=== PATIENT | male | born 1970 | race African-American/Black ===

== ENCOUNTER 2023-10-12 15:59 | Emergency (ER) | payer OTHER, SELFPAY ==
[2023-10-12 16:04] VITALS: BP 147/84; PULSE 76; RESP 14; TEMP 36.1; O2SAT 99; BMI 38.3
[2023-10-12 17:08] VITALS: PULSE 74; O2SAT 96
[2023-10-12 17:09] VITALS: BP 136/85; PULSE 75; O2SAT 95
[2023-10-12 17:15] LABS: Add Manual Diff / Slide Review NO; Basophils Absolute Auto 100 /uL (0-100); Basophils Percent Auto 1.6 % (0-2); Eosinophils Absolute Auto 400 /uL (0-450); Eosinophils Percent Auto 5.1 % (2-4); Hematocrit 43.6 % (41-53); Hemoglobin 14.5 g/dL (13.5-17.5); Lymphocytes Absolute Auto 2400 /uL (1100-4500); Lymphocytes Percent Auto 30.6 % (25-40); Mean Corpuscular HGB Conc 33.2 % (30-36); Mean Corpuscular Volume 81.4 fL (80-100); Monocytes Absolute Auto 800 /uL (0-900); Monocytes Percent Auto 9.7 % (3-14); Neutrophils Absolute Auto 4100 /uL (1500-7000); Platelet Count 411 X10^3/uL (150-400); Red Blood Cell Count 5.36 X10^6/uL (4.5-5.9); White Blood Cell Count 7.7 X10^3/uL (4.5-11.0)
[2023-10-12 17:30] VITALS: BP 126/79; PULSE 68; O2SAT 95
--- NOTE | 2023-10-12 17:33 | ED_ITS ---
HPI - GI Bleed General Chief complaint: GI Bleed Stated complaint: blood in stool Time Seen by Provider: 10/12/23 16:05 Source: patient Mode of arrival: Ambulatory History of Present Illness HPI Narrative: 53-year-old male with no reported past medical history presents by private vehicle from home for 2 episodes of bright red blood on toilet tissue. Reports 1-2 drops of red blood on toilet tissue after a bowel movement. Denies abdominal pain. States that his last colonoscopy was 07/2022, a small polyp was removed, and patient was told to return for repeat colonoscopy in 3 years. Related Data Allergies Allergy/AdvReac Type Severity Reaction Status Date / Time aspirin Allergy Unknown Verified 10/12/23 16:08 Review of Systems Review of Systems Narrative: Negative except as noted above Patient History Social History Smoking Status: Never smoker Smoking Status: Never smoker alcohol intake frequency: 0-2 drinks per day Substance Use Type: does not use Exam Initial Vital Signs Initial Vital Signs: Vital Signs Temperature 97.0 F L 10/12/23 16:04 Pulse Rate 76 10/12/23 16:04 Respiratory Rate 14 10/12/23 16:04 Blood Pressure 147/84 H 10/12/23 16:04 Pulse Oximetry 99 10/12/23 16:04 Oxygen Delivery Method Room Air 10/12/23 16:04 Const: Awake, alert, no acute distress, nontoxic appearing Cardiac: regular rate, regular rhythm RESP: unlabored, clear bilaterally, no wheezing GI: Atraumatic, soft, nontender, nondistended, no rebound, no guarding Rectal: Senior Administrative Assistant present, no fissures, no thrombosed hemorrhoids, no gross blood MSK: Atraumatic, full range of motion, pulses equal Skin: Warm, Dry, intact, no rashes Neuro: AO x3, CN II-XII grossly intact, moves all extremities Course Orders Ordered: ED Orders 10/12/23 17:04 CBC Auto Diff [Complete Blood Count AUTO DIFF] Stat CMP [Comprehensive Metabolic Panel] Stat Vital Signs Vital signs: Vital Signs - 8 hr 10/12/23 16:04 Temperature 97.0 F L Pulse Rate 76 Respiratory Rate 14 Blood Pressure 147/84 H Pulse Oximetry 99 Oxygen Delivery Method Room Air MDM - GI Bleed Differential Diagnosis Differential diagnosis: Likely hemorrhoids, gastritis and Upper gastrointestinal hemorrhage Lab Data 10/12/23 17:04 10/12/23 17:04 Labs: Lab Results 10/12/23 Range/Units 17:04 WBC 7.7 (4.5-11.0) X10^3/uL RBC 5.36 (4.5-5.9) X10^6/uL Hgb 14.5 (13.5-17.5) g/dL Hct 43.6 (41-53) % MCV 81.4 (80-100) fL MCH 27.0 (26-34) PG MCHC 33.2 (30-36) % RDW 13.0 (11.6-14.8) % Plt Count 411 H (150-400) X10^3/uL Neut % (Auto) 53.0 (50-75) % Lymph % (Auto) 30.6 (25-40) % [place] % (Auto) 9.7 (3-14) % Eos % (Auto) 5.1 H (2-4) % Baso % (Auto) 1.6 (0-2) % Neut # (Auto) 4100 (5671-2135) /uL Lymph # (Auto) 2400 (1984-2044) /uL [place] # (Auto) 800 (0-900) /uL Eos # (Auto) 400 (0-450) /uL Baso # (Auto) 100 (0-100) /uL Sodium 142 (137-145) mmol/L Potassium 4.0 (3.4-5.1) mmol/L Chloride 106 (98-107) mmol/L Carbon Dioxide 26 (22-32) mmol/L BUN 12 (9-20) mg/dL Creatinine 1.19 (0.66-1.25) mg/dL Estimated GFR > 60 (>60) mL/min BUN/Creatinine Ratio 10.1 (6-22) Glucose 121 H (70-100) mg/dL Calcium 9.7 (8.4-10.2) mg/dL Total Bilirubin 0.6 (0.2-1.3) mg/dL AST 29 (17-59) IU/L ALT 28 (<50) IU/L Alkaline Phosphatase 200 H (38-126) U/L Total Protein 8.9 H (6.3-8.2) g/dL Albumin 4.6 (3.5-5.0) g/dL Globulin 4.3 H (1.7-4.1) g/dL Albumin/Globulin Ratio 1.1 (1.0-2.8) MDM Narrative Medical decision making narrative: .Well-appearing patient with several drops of bright red blood when he wipes after using the restroom. No abnormal rectal exam, abdomen soft, nontender. Colonoscopy less than 2 years ago. Laboratory work is unremarkable, hemoglobin greater than 14. With normal abdominal exam, normal rectal exam, normal labs no indication for CT imaging at this time. Patient was counseled to follow up with his wood heel attacher about the possibility of repeat colonoscopy at a sooner date, in the interim he was counseled to take daily stool softeners, drink plenty of fluids, and avoid prolonged sitting on the toilet. ED return precautions discussed at bedside. Patient expressed understanding of the plan and is in agreement at this time. All questions answered at the time of discharge. Discharge Plan Departure Patient Disposition: Home Clinical Impression: Bleeding per rectum Instructions: Gastrointestinal Bleeding Activity Restrictions/Additional Instructions: CALL YOUR VICE PRESIDENT OF MANUFACTURING FOR A FOLLOW UP APPOINTMENT. MAKE SURE TO EAT PLENTY OF FIBER AND DRINK PLENTY OF FLUIDS. YOUR HEMOGLOBIN TODAY WAS 14.5. Referrals: [facility] [Primary Care Provider] - Stand Alone Forms: Patient Portal/API
[2023-10-12 17:44] LABS: Alanine Aminotransferase 28 IU/L (<50); Albumin 4.6 g/dL (3.5-5.0); Albumin Globulin Ratio 1.1 (1.0-2.8); Alkaline Phosphatase 200 U/L (38-126); Aspartate Aminotransferase 29 IU/L (17-59); BUN Creatinine Ratio 10.1 (6-22); Bilirubin Total 0.6 mg/dL (0.2-1.3); Blood Urea Nitrogen 12 mg/dL (9-20); Calcium 9.7 mg/dL (8.4-10.2); Carbon Dioxide 26 mmol/L (22-32); Chloride 106 mmol/L (98-107); Estimated Glomerular Filt Rate > 60 mL/min (>60); Globulin 4.3 g/dL (1.7-4.1); Glucose 121 mg/dL (70-100); HEMOLYSIS 32 (0-50); Sodium 142 mmol/L (137-145); Total Protein 8.9 g/dL (6.3-8.2)
[2023-10-12 18:00] VITALS: PULSE 66; O2SAT 96
== END 2023-10-12 18:17 | disposition home or self-care (01) ==
PROVIDERS: Emergency Provider Emergency Medicine
DX: K62.5 Hemorrhage of anus and rectum (principal)
CPT/HCPCS: 36415; 80053; 85025; 99283

== ENCOUNTER 2024-11-04 20:48 | Inpatient (IN) | payer OTHER, SELFPAY ==
[2024-11-04] VITALS (27 sets, daily range): BP systolic 98–165; BP diastolic 55–93; PULSE 125–165; RESP 7–28; TEMP 36.8; O2SAT 94–100; BMI 39.0
--- NOTE | 2024-11-04 20:54 | EKG_ITS ---
[facility] [address] [place] [address] Test Date: 2024-11-04 Pat Name: Solomon Pritchard Department: [facility] Room: Gender: Male Product Advisor: DAVE : 1970 Requested By: Order Number: [id number] Reading MD: Delano Thorpe MD Measurements Intervals [place] Rate: 148 P: NE: QRS: -29 QRSD: 78 T: 265 QT: 292 QTc: 458 Interpretive Statements Critical Test Result: High HR Atrial fibrillation with rapid ventricular response with premature ventricular or aberrantly conducted complexes Low voltage QRS Inferior infarct , age undetermined NO PRIOR TRACING Electronically Signed On 11-05-2024 7:35:08 PST by Delano Thorpe MD
--- NOTE | 2024-11-04 21:04 | DI.RAD.S_ITS ---
PROCEDURE: XR CHEST 1V INDICATIONS: chest pain TECHNIQUE: One view of the chest was acquired. COMPARISON: None. FINDINGS: Surgical changes and devices: None. Lungs and pleura: Low lung volumes. No dense airspace disease or pleural effusions. Mediastinum: Normal heart size Bones and chest wall: Unremarkable IMPRESSION: No acute radiographic abnormality on this single view study. Low lung volumes. Dictated by: Talib Valderrama M.D. on 11/04/2024 at 21:45 Approved by: Talib Valderrama M.D. on 11/04/2024 at 21:45
--- NOTE | 2024-11-04 21:14 | ED.CHESTPAIN ---
HPI - Chest Pain General Chief Complaint: Chest Pain Stated Complaint: afib Time Seen by Provider: 11/04/24 21:04 Source: patient Mode of arrival: Ambulatory Limitations: no limitations History of Present Illness HPI narrative: Patient is a 54-year-old male history of hypertension presenting today with irregular heartbeat. He reports he has been off and on for the last 2 weeks his watch has been notifying him of that. He does have some shortness of breath admits to some discomfort in his chest. No actual pain. He denies any recent travel no prior history of any cardiac issue. Denies any lower extremity swelling Related Data Allergies Allergy/AdvReac Type Severity Reaction Status Date / Time aspirin Allergy Unknown Verified 10/12/23 16:08 Patient History Social History Smoking Status: Never smoker Smoking Status: Never smoker alcohol intake frequency: 0-2 drinks per day Exam Initial Vital Signs Initial Vital Signs: Vital Signs Temperature 98.3 F 11/04/24 20:58 Pulse Rate 165 H 11/04/24 20:58 Respiratory Rate 10 L 11/04/24 20:58 Blood Pressure 165/93 H 11/04/24 20:58 Pulse Oximetry 100 11/04/24 20:58 Oxygen Delivery Method Room Air 11/04/24 20:58 GENERAL: Alert pleasant 54-year-old male and in no acute distress. HEENT: Head atraumatic,EOMI, pupils reactive, face symmetric, moist mucous membranes CARDIOVASCULAR: Irregularly irregular tachycardic RESPIRATORY: Breath sounds equal bilaterally, no wheezes rales or rhonchi. ABDOMEN: Soft, nontender. Normoactive bowel sounds all 4 quadrants. No guarding or rebound. EXTREMITIES: Normal range of motion, no clubbing or edema. Neurovascularly intact NEUROLOGICAL: Alert and oriented x4.Normal gait and speech. Cranial nerves II through XII grossly intact. SKIN: Warm, dry, no laceration, no petechiae, no rashes or lesions. Course Orders Ordered: ED Orders 11/04/24 20:54 EKG-12 Lead Stat 11/04/24 21:04 XR chest 1V Stat EKG-12 Lead Stat 11/04/24 21:06 BNP [NT-proBNP (BNP-Adult 18+)] Stat Complete Blood Count AUTO DIFF Stat Comprehensive Metabolic Panel Stat D Dimer Stat Lipase Stat MAG [Magnesium] Stat PTT Partial Thromboplastin Shyam Stat Prothrombin Time INR Stat TSH [Thyroid Stimulating Hormone] Stat Troponin & CK Cardiac Panel Stat 11/04/24 23:34 CT angio chest PE protocol Stat 11/05/24 EC echo doppler complete Routine Diltiazem HCl 125 mg/ Sodium (Chloride) 125 mls @ 5 mls/hr IV TITRATE JOYCE; Protocol Last Titration: 11/04/24 23:34 Dose: 15 mg/hr, 15 mls/hr Documented By: Titration: 11/04/24 23:14 Dose: 10 mg/hr, 10 mls/hr Documented By: Admin: 11/04/24 22:41 Dose: 5 mg/hr, 5 mls/hr Documented By: MR Discontinued Medications Apixaban (Apixaban 5 Mg Tablet) 5 mg PO NOW ONE Stop: 11/04/24 22:32 Last Admin: 11/04/24 22:38 Dose: 5 mg Documented By: MR Diltiazem HCl (Diltiazem 25 Mg/5 Ml Sdv) 10 mg IV NOW ONE Stop: 11/04/24 21:05 Last Admin: 11/04/24 21:27 Dose: 10 mg Documented By: MR Diltiazem HCl (Diltiazem 25 Mg/5 Ml Sdv) 10 mg IV NOW ONE Stop: 11/04/24 21:48 Last Admin: 11/04/24 21:52 Dose: 10 mg Documented By: Vital Signs Vital signs: Vital Signs - 8 hr 11/04/24 20:58 11/04/24 21:07 11/04/24 21:08 Temperature 98.3 F Pulse Rate 165 H 153 H Respiratory Rate 10 L Blood Pressure 165/93 H 132/83 Pulse Oximetry 100 98 Oxygen Delivery Method Room Air 11/04/24 21:08 11/04/24 21:27 11/04/24 21:30 Temperature Pulse Rate 158 H 163 H Respiratory Rate 12 Blood Pressure 132/83 120/84 Pulse Oximetry 98 Oxygen Delivery Method 11/04/24 21:30 11/04/24 21:52 11/04/24 22:00 Temperature Pulse Rate 158 H 127 H 129 H Respiratory Rate 17 14 Blood Pressure 120/84 Pulse Oximetry 96 95 Oxygen Delivery Method 11/04/24 22:00 11/04/24 22:30 11/04/24 22:30 Temperature Pulse Rate 139 H Respiratory Rate 9 L Blood Pressure 122/82 117/74 Pulse Oximetry 96 Oxygen Delivery Method 11/04/24 22:41 11/04/24 22:55 11/04/24 22:55 Temperature Pulse Rate 141 H 142 H Respiratory Rate 11 L Blood Pressure 117/74 106/82 Pulse Oximetry 96 Oxygen Delivery Method 11/04/24 22:56 11/04/24 22:56 11/04/24 22:57 Temperature Pulse Rate 139 H Respiratory Rate 15 Blood Pressure 117/84 109/72 Pulse Oximetry 95 Oxygen Delivery Method 11/04/24 22:57 11/04/24 22:58 11/04/24 22:58 Temperature Pulse Rate 142 H 127 H Respiratory Rate 13 13 Blood Pressure 126/67 Pulse Oximetry 96 96 Oxygen Delivery Method 11/04/24 22:59 11/04/24 22:59 11/04/24 23:00 Temperature Pulse Rate 136 H Respiratory Rate 7 L Blood Pressure 123/78 125/64 Pulse Oximetry 96 Oxygen Delivery Method 11/04/24 23:00 11/04/24 23:05 11/04/24 23:05 Temperature Pulse Rate 141 H 129 H Respiratory Rate 13 13 Blood Pressure 122/72 Pulse Oximetry 96 95 Oxygen Delivery Method 11/04/24 23:10 11/04/24 23:10 11/04/24 23:15 Temperature Pulse Rate 138 H Respiratory Rate 10 L Blood Pressure 123/67 120/79 Pulse Oximetry 95 Oxygen Delivery Method 11/04/24 23:15 11/04/24 23:20 11/04/24 23:20 Temperature Pulse Rate 138 H 142 H Respiratory Rate 15 15 Blood Pressure 135/63 Pulse Oximetry 96 95 Oxygen Delivery Method 11/04/24 23:25 11/04/24 23:25 11/04/24 23:30 Temperature Pulse Rate 142 H 141 H Respiratory Rate 13 12 Blood Pressure 120/66 Pulse Oximetry 94 95 Oxygen Delivery Method 11/04/24 23:30 11/04/24 23:33 11/04/24 23:35 Temperature Pulse Rate 136 H Respiratory Rate 13 Blood Pressure 126/71 98/55 L Pulse Oximetry 96 Oxygen Delivery Method 11/04/24 23:35 11/04/24 23:40 11/04/24 23:41 Temperature Pulse Rate 125 H 158 H 153 H Respiratory Rate 13 28 H 22 Blood Pressure Pulse Oximetry 94 94 95 Oxygen Delivery Method 11/04/24 23:41 11/04/24 23:45 11/04/24 23:45 Temperature Pulse Rate 147 H Respiratory Rate 14 Blood Pressure 123/78 118/69 Pulse Oximetry 95 Oxygen Delivery Method 11/04/24 23:50 11/04/24 23:50 11/05/24 00:02 Temperature Pulse Rate 144 H 93 H Respiratory Rate 13 28 H Blood Pressure 104/74 Pulse Oximetry 95 96 Oxygen Delivery Method 11/05/24 00:05 11/05/24 00:10 11/05/24 00:15 Temperature Pulse Rate 137 H 135 H 138 H Respiratory Rate 8 L 9 L 23 Blood Pressure Pulse Oximetry 97 94 96 Oxygen Delivery Method 11/05/24 00:20 11/05/24 00:25 11/05/24 00:30 Temperature Pulse Rate 132 H 138 H 131 H Respiratory Rate 13 12 11 L Blood Pressure Pulse Oximetry 95 95 95 Oxygen Delivery Method 11/05/24 00:35 11/05/24 00:40 Temperature Pulse Rate 139 H 140 H Respiratory Rate 19 11 L Blood Pressure Pulse Oximetry 94 95 Oxygen Delivery Method MDM - Chest Pain Lab Data 11/04/24 21:06 11/04/24 21:06 Labs: Lab Results 11/04/24 Range/Units 21:06 WBC 7.7 (4.5-11.0) X10^3/uL RBC 4.84 (4.5-5.9) X10^6/uL Hgb 13.6 (13.5-17.5) g/dL Hct 41.0 (41-53) % MCV 84.6 (80-100) fL MCH 28.1 (26-34) PG MCHC 33.2 (30-36) % RDW 13.1 (11.6-14.8) % Plt Count 428 H (150-400) X10^3/uL Neut % (Auto) 44.7 L (50-75) % Lymph % (Auto) 40.1 H (25-40) % [place] % (Auto) 9.6 (3-14) % Eos % (Auto) 4.8 H (2-4) % Baso % (Auto) 0.8 (0-2) % Neut # (Auto) 3400 (5073-2771) /uL Lymph # (Auto) 3100 (8844-1041) /uL [place] # (Auto) 700 (0-900) /uL Eos # (Auto) 400 (0-450) /uL Baso # (Auto) 100 (0-100) /uL PT 11.4 (9.4-12.5) SECONDS INR 1.0 (0.9-1.3) APTT 37 H (25.1-36.5) SECONDS D-Dimer 885 H (<500) ng/ml Sodium 142 (137-145) mmol/L Potassium 3.7 (3.4-5.1) mmol/L Chloride 110 H (98-107) mmol/L Carbon Dioxide 25 (22-32) mmol/L BUN 15 (9-20) mg/dL Creatinine 1.60 H (0.66-1.25) mg/dL Estimated GFR 51 L (>60) mL/min BUN/Creatinine Ratio 9.4 (6-22) Glucose 109 H (70-100) mg/dL Calcium 9.0 (8.4-10.2) mg/dL Magnesium 1.9 (1.6-2.3) mg/dL Total Bilirubin 0.5 (0.2-1.3) mg/dL AST 31 (17-59) IU/L ALT 33 (<50) IU/L Alkaline Phosphatase 169 H (38-126) U/L Total Creatine Kinase 139 (55-170) U/L Troponin I < 0.012 (0.01-0.034) ng/mL NT-Pro-B Natriuret Pep 914 H (<125) pg/mL Total Protein 7.8 (6.3-8.2) g/dL Albumin 4.2 (3.5-5.0) g/dL Globulin 3.6 (1.7-4.1) g/dL Albumin/Globulin Ratio 1.2 (1.0-2.8) Lipase 110 (23-300) U/L TSH 3.23 (0.47-4.68) uIU/mL Point of Care Testing Glucose POC 109 Imaging Data Chest x-ray: Radiologist's Impression: PROCEDURE: XR CHEST 1V INDICATIONS: chest pain TECHNIQUE: One view of the chest was acquired. COMPARISON: None. FINDINGS: Surgical changes and devices: None. Lungs and pleura: Low lung volumes. No dense airspace disease or pleural effusions. Mediastinum: Normal heart size Bones and chest wall: Unremarkable IMPRESSION: No acute radiographic abnormality on this single view study. Low lung volumes. Dictated by: Talib Valderrama M.D. on 11/04/2024 at 21:45 CT scan - chest: Radiologist's Impression: PROCEDURE: CT ANGIO CHEST PE PROTOCOL INDICATIONS: new onset afib r/o pe TECHNIQUE: After the administration of intravenous contrast, 2 mm thick sections acquired from the pulmonary apices to the posterior costophrenic angles. 3-dimensional maximum intensity projection (MIP) coronal and sagittal reformats were then acquired through the thorax. For radiation dose reduction, the following was used: automated exposure control, adjustment of mA and/or kV according to patient size. COMPARISON: [facility], , XR CHEST 1V, 11/04/2024, 21:14. FINDINGS: Image quality: Diagnostic Lungs and pleura: Mild lower lung centrilobular nodules. Scattered bronchial wall thickening. No pleural effusions. Other nodules are present for example in the right upper lung measuring 5 mm (5/99) attention Attention on follow-up. Mediastinum, heart, and esophagus: Mild cardiomegaly. No acute pulmonary embolism. Mildly patulous esophagus. No enlarged lymph nodes by size criteria. Mildly ectatic ascending aorta at 4.1 cm. Chest wall and thyroid: Unremarkable Upper abdomen: No gross abnormality on these arterial phase images. Bones: No aggressive appearing osseous abnormality. IMPRESSION: No pulmonary embolus. Centrilobular pulmonary nodules mostly in the lower lungs, likely infectious/inflammatory. Consider future imaging surveillance to assess for resolution. Cardiomegaly. Other findings above. Dictated by: Talib Valderrama M.D. on 11/05/2024 at 0:12 ECG Data Attestation: I personally reviewed and interpreted this ECG as follows: Prior ECG tracings: available for review Interpretation: Atrial fibrillation rate 148 no acute ischemic changes MDM Narrative Medical decision making narrative: MDM CC: Atrial fibrillation Complicating co-morbidities: Hypertension Medical records reviewed: Per ED visit 10/12/2023 for rectal bleeding Differential considered: Atrial fibrillation atrial flutter WPW,, anemia pneumonia, pulmonary embolism Exam documented above, pertinent findings include: Pleasant nontoxic 54-year-old male irregularly irregular tachycardic Lab Test results independently reviewed as above. Pertinent findings: No leukocytosis or anemia hemoglobin 13.6 hematocrit 41.0 Sodium 142 potassium 3.7 chloride 110 carbon dioxide 25 BUN 15 creatinine 1.6 glucose 109 Bilirubin 0.5 AST 31 ALT 33 Troponin negative BNP 914 D-dimer 885 Independently reviewed EKG as above atrial fibrillation with RVR without ischemia Imaging studies independently reviewed: Consultations: Dr. Ames, hospitalist updated patient's symptoms test results request CT for rule out PE before accepting. Aware of heart rate may need to add beta-vic as well Treatments: Diltiazem 20 mg, Diltiazem drip Re-evaluations: Patient's heart rate did slow initially with diltiazem, however it does seem to be fluctuating quite a bit he was taken off for the CT scan as well but does not seem adequately controlled on diltiazem Discussion: Patient 54-year-old male history of hypertension presenting today with atrial fibrillation with RVR. It has been going on for at least 2 weeks he has not a candidate for cardioversion. He does have some symptoms. BNP mildly elevated D-dimer is less than 1000 he has not hypoxic. I do not think he needs a CT at this time. Diltiazem drip started he was given a 1st dose of Eliquis as well. CHADS-VASc is only 1 but he is allergic to aspirin which causes tongue swelling. He has also been in atrial fibrillation probably for the last 2 weeks. HAWA?DS?-VASc Score for Atrial Fibrillation Stroke Risk from [employer] on 11/04/2024 All calculations should be rechecked by clinician prior to use RESULT SUMMARY: 1 points Stroke risk was 0.6% per year in >90,000 patients (the [place] Atrial Fibrillation Cohort Study) and 0.9% risk of stroke/TIA/systemic embolism. INPUTS: Age ?> 0 = <65 Sex ?> 0 = Male CHF history ?> 0 = No Hypertension history ?> 1 = Yes Stroke/TIA/thromboembolism history ?> 0 = No Vascular disease history (prior [place], peripheral artery disease, or aortic plaque) ?> 0 = No Diabetes history ?> 0 = No Discharge Plan Departure Patient Disposition: Admitted As Inpatient Admit Date/Time: 11/05/24 00:43 Admit Provider: Glory Ames
[2024-11-04 21:15] LABS: Add Manual Diff / Slide Review NO; Basophils Absolute Auto 100 /uL (0-100); Basophils Percent Auto 0.8 % (0-2); Eosinophils Absolute Auto 400 /uL (0-450); Eosinophils Percent Auto 4.8 % (2-4); Hemoglobin 13.6 g/dL (13.5-17.5); Lymphocytes Absolute Auto 3100 /uL (1100-4500); Lymphocytes Percent Auto 40.1 % (25-40); Mean Corpuscular HGB Conc 33.2 % (30-36); Mean Corpuscular Hemoglobin 28.1 PG (26-34); Mean Corpuscular Volume 84.6 fL (80-100); Monocytes Absolute Auto 700 /uL (0-900); Monocytes Percent Auto 9.6 % (3-14); Neutrophils Absolute Auto 3400 /uL (1500-7000); Neutrophils Percent Auto 44.7 % (50-75); Platelet Count 428 X10^3/uL (150-400); Red Blood Cell Count 4.84 X10^6/uL (4.5-5.9); Red Cell Distribution Width 13.1 % (11.6-14.8); White Blood Cell Count 7.7 X10^3/uL (4.5-11.0)
[2024-11-04] MEDS: dilTIAZem 25 MG/5 ML SDV 10 MG IV ×2 (21:27→21:52)
[2024-11-04 21:28] LABS: Alanine Aminotransferase 33 IU/L (<50); Albumin 4.2 g/dL (3.5-5.0); Albumin Globulin Ratio 1.2 (1.0-2.8); Alkaline Phosphatase 169 U/L (38-126); Aspartate Aminotransferase 31 IU/L (17-59); BUN Creatinine Ratio 9.4 (6-22); Bilirubin Total 0.5 mg/dL (0.2-1.3); Blood Urea Nitrogen 15 mg/dL (9-20); Carbon Dioxide 25 mmol/L (22-32); Chloride 110 mmol/L (98-107); Creatine Kinase 139 U/L (55-170); Estimated Glomerular Filt Rate 51 mL/min (>60); Globulin 3.6 g/dL (1.7-4.1); Glucose 109 mg/dL (70-100); HEMOLYSIS 24 (0-50); Lipase 110 U/L (23-300); Magnesium 1.9 mg/dL (1.6-2.3); Potassium 3.7 mmol/L (3.4-5.1); Sodium 142 mmol/L (137-145); Total Protein 7.8 g/dL (6.3-8.2)
[2024-11-04 21:29] LABS: Prothrombin Time 11.4 SECONDS (9.4-12.5)
[2024-11-04 21:31] LABS: PTT Partial Thromboplastin Tim 37 SECONDS (25.1-36.5)
[2024-11-04 21:39] LABS: Troponin I < 0.012 ng/mL (0.01-0.034)
[2024-11-04 22:04] LABS: NT-proBNP (BNP-Adult 18+) 914 pg/mL (<125)
[2024-11-04 22:20] LABS: D Dimer 885 ng/ml (<500)
[2024-11-04 22:26] LABS: Thyroid Stimulating Hormone 3.23 uIU/mL (0.47-4.68)
[2024-11-04] MEDS: APIXABAN 5 MG TABLET PO (22:38)
[2024-11-04] MEDS: dilTIAZem 125 MG in SODIUM CHLORIDE 0.9% 100 ML IV (22:41)
--- NOTE | 2024-11-04 23:34 | DI.CT.S_ITS ---
PROCEDURE: CT ANGIO CHEST PE PROTOCOL INDICATIONS: new onset afib r/o pe TECHNIQUE: After the administration of intravenous contrast, 2 mm thick sections acquired from the pulmonary apices to the posterior costophrenic angles. 3-dimensional maximum intensity projection (MIP) coronal and sagittal reformats were then acquired through the thorax. For radiation dose reduction, the following was used: automated exposure control, adjustment of mA and/or kV according to patient size. COMPARISON: [facility], CR, XR CHEST 1V, 11/04/2024, 21:14. FINDINGS: Image quality: Diagnostic Lungs and pleura: Mild lower lung centrilobular nodules. Scattered bronchial wall thickening. No pleural effusions. Other nodules are present for example in the right upper lung measuring 5 mm (5/99) attention Attention on follow-up. Mediastinum, heart, and esophagus: Mild cardiomegaly. No acute pulmonary embolism. Mildly patulous esophagus. No enlarged lymph nodes by size criteria. Mildly ectatic ascending aorta at 4.1 cm. Chest wall and thyroid: Unremarkable Upper abdomen: No gross abnormality on these arterial phase images. Bones: No aggressive appearing osseous abnormality. IMPRESSION: No pulmonary embolus. Centrilobular pulmonary nodules mostly in the lower lungs, likely infectious/inflammatory. Consider future imaging surveillance to assess for resolution. Cardiomegaly. Other findings above. Dictated by: Talib Valderrama M.D. on 11/05/2024 at 0:12 Approved by: Talib Valderrama M.D. on 11/05/2024 at 0:16
--- NOTE | 2024-11-04 23:39 | PM.HP.1 ---
History of Present Illness History of Present Illness Date Patient Seen: 11/05/24 Chief complaint: afib with rvr Narrative: Solomon Pritchard is a 54 y/o M, with h/o HTN, colonic polyp, who presented to ED with irregular heart rate as prompted by his smart watch. Pt states this has been going on x 2 weeks, and he was getting prompts from his smart watch re: presence of irregular heart rhythm, however pt was reluctant to come in to ED earlier. He noted mild Shortness of breath and some chest discomfort , latter at intensity of 2. Denies syncope, actual Chest pain, stroke like symptoms, severe headache or vision or speech changes. Denies cough, f/c, recent flu like syndrome, abd pain,m N/V Denies h/o DC, prior cardiac arrythmias, DVT or PE. Denies recent long travel or recent hospitalization, or immobility. Denies calf pain, any h/o CHF, no h/o DM, HLD and is a non cig smoker. Denies h/o UGIB. He was seen in ED on 10/12/21 for a few drops of BPR , with BM, and was advised , likely sec hemorrhoids. He has had a colonoscopy 07/2022 : small colonic polyp removed and advised to return for a repeat colonoscopy in 3 years. In ED , he was noted to be in A fib, with VR in 140s to 160s, his BP was 117/74, afebrile, RR 17, O2 sat on RA : 95% EKG viewed by me : A fib VR at 148, no acute ST-T wave changes noted Initial Troponin not elevated : 0.012 CBC WNL Pro bnp : up at 914, and D dimer elevated at 885 Electrolytes WNL Mild elevated Creat at 1.60/ BUN 15 Creat has gone up c/w 1.19 ( 10/12/24) Mild elevated Alk Phos at 169 ( was 20 on 10/12/24 ED visit) AST/ ALT, Bilirubin WNL Pt was given Diltiazem IV boluses 10 mg each x 2 , however as his VR still in 150s to 160s, he was started on a Diltriazem Drip. He was also given Apixaban 5 mg po. A CTA chest done given elevated D dimer in setting of A fib with RVR : No Pulm Embolism Lower lobes showed opacities : ? infectious or Inflammatory. Follow up advised Pt referred to Hospital team for admission to ICU for close hemodynamic monitoring. [facility] Medical History (Updated 11/05/24 @ 03:28 by Glory Ames MD) HTN (hypertension) Social History household members: spouse Smoking Status: Never smoker Meds Home Medications and Allergies Home Medications Medication Instructions Recorded Confirmed Type amlodipine 10 mg tablet 10 mg DAILY 11/05/24 11/05/24 History omeprazole 20 mg capsule,delayed 20 mg DAILY 11/05/24 11/05/24 History release Allergies Allergy/AdvReac Type Severity Reaction Status Date / Time aspirin Allergy Unknown Verified 10/12/23 16:08 Review of Systems Review of Systems ROS: Yes All systems reviewed with the patient and are negative except as otherwise documented Exam Vital Signs (past 8 hours): - 11/04/24 20:58 11/04/24 21:07 11/04/24 21:08 Temperature 98.3 F Pulse Rate 165 H 153 H Respiratory Rate 10 L Blood Pressure 165/93 H 132/83 Pulse Oximetry 100 98 Oxygen Delivery Method Room Air 11/04/24 21:08 11/04/24 21:27 11/04/24 21:30 Temperature Pulse Rate 158 H 163 H Respiratory Rate 12 Blood Pressure 132/83 120/84 Pulse Oximetry 98 Oxygen Delivery Method 11/04/24 21:30 11/04/24 21:52 11/04/24 22:00 Temperature Pulse Rate 158 H 127 H 129 H Respiratory Rate 17 14 Blood Pressure 120/84 Pulse Oximetry 96 95 Oxygen Delivery Method 11/04/24 22:00 11/04/24 22:30 11/04/24 22:30 Temperature Pulse Rate 139 H Respiratory Rate 9 L Blood Pressure 122/82 117/74 Pulse Oximetry 96 Oxygen Delivery Method 11/04/24 22:41 11/04/24 22:55 11/04/24 22:55 Temperature Pulse Rate 141 H 142 H Respiratory Rate 11 L Blood Pressure 117/74 106/82 Pulse Oximetry 96 Oxygen Delivery Method 11/04/24 22:56 11/04/24 22:56 11/04/24 22:57 Temperature Pulse Rate 139 H Respiratory Rate 15 Blood Pressure 117/84 109/72 Pulse Oximetry 95 Oxygen Delivery Method 11/04/24 22:57 11/04/24 22:58 11/04/24 22:58 Temperature Pulse Rate 142 H 127 H Respiratory Rate 13 13 Blood Pressure 126/67 Pulse Oximetry 96 96 Oxygen Delivery Method 11/04/24 22:59 11/04/24 22:59 11/04/24 23:00 Temperature Pulse Rate 136 H Respiratory Rate 7 L Blood Pressure 123/78 125/64 Pulse Oximetry 96 Oxygen Delivery Method 11/04/24 23:00 11/04/24 23:05 11/04/24 23:05 Temperature Pulse Rate 141 H 129 H Respiratory Rate 13 13 Blood Pressure 122/72 Pulse Oximetry 96 95 Oxygen Delivery Method 11/04/24 23:10 11/04/24 23:10 11/04/24 23:15 Temperature Pulse Rate 138 H Respiratory Rate 10 L Blood Pressure 123/67 120/79 Pulse Oximetry 95 Oxygen Delivery Method 11/04/24 23:15 11/04/24 23:20 11/04/24 23:20 Temperature Pulse Rate 138 H 142 H Respiratory Rate 15 15 Blood Pressure 135/63 Pulse Oximetry 96 95 Oxygen Delivery Method 11/04/24 23:25 11/04/24 23:25 11/04/24 23:30 Temperature Pulse Rate 142 H 141 H Respiratory Rate 13 12 Blood Pressure 120/66 Pulse Oximetry 94 95 Oxygen Delivery Method 11/04/24 23:30 11/04/24 23:33 Temperature Pulse Rate 136 H Respiratory Rate 13 Blood Pressure 126/71 Pulse Oximetry 96 Oxygen Delivery Method Oxygen Delivery Method Room Air Glucose POC: 109 Narrative Exam Narrative: Physical exam: Pt denies Chest pain. NAD HEENT: AT/ NC head, EOMI, PERRL , anicteric sclerae Nek is supple , no JVD , no TMG, no Lymphadenopathy Chest: Normal Respiratory effort. CTA , BS present bilat, equal and WNL. No Wheezing, Rales or Rhonchi Heart : Irregularly Irregular rhythm. No Murmur or rub. Abd : soft , NT, ND , No HSM , BS WNL in all 4 quadrants,no flank tenderness. Ext : No edema, Cyanosis or clubbing. No Calf Tenderness bilaterally . Neuro: A and O x 4 , answering questions appropriately, Is Non focal. cranial nerves 2-12 are checked and are intact.No gross motor or Sensory deficits noted. Psyche: Cooperative , Judgement and insight WNL Objective Labs 11/04/24 21:06 11/04/24 21:06 Labs: Laboratory Results - last 24 hr 11/04/24 21:06 WBC 7.7 RBC 4.84 Hgb 13.6 Hct 41.0 MCV 84.6 MCH 28.1 MCHC 33.2 RDW 13.1 Plt Count 428 H Neut % (Auto) 44.7 L Lymph % (Auto) 40.1 H Fergus % (Auto) 9.6 Eos % (Auto) 4.8 H Baso % (Auto) 0.8 Neut # (Auto) 3400 Lymph # (Auto) 3100 Fergus # (Auto) 700 Eos # (Auto) 400 Baso # (Auto) 100 PT 11.4 INR 1.0 APTT 37 H D-Dimer 885 H Sodium 142 Potassium 3.7 Chloride 110 H Carbon Dioxide 25 BUN 15 Creatinine 1.60 H Estimated GFR 51 L BUN/Creatinine Ratio 9.4 Glucose 109 H Calcium 9.0 Magnesium 1.9 Total Bilirubin 0.5 AST 31 ALT 33 Alkaline Phosphatase 169 H Total Creatine Kinase 139 Troponin I < 0.012 NT-Pro-B Natriuret Pep 914 H Total Protein 7.8 Albumin 4.2 Globulin 3.6 Albumin/Globulin Ratio 1.2 Lipase 110 TSH 3.23 Assessment & Plan Assessment and plan (1) Atrial fibrillation, new onset: Problem details: Pt with h/o HTN, obesity ( BMI 39) no other cardiac history . Has new onset A fib going on x 2 weeks . Pt states he first noted while he was going up stairs at his work, on Tuesday 2 weeks ago, his smart watch alerted him with a signal atrial fibrillation, however pt states he did not know what that meant so he did not take much notice of it. He was noting being a little winded as he'd get to top of a flight of stairs. He noted the smart watch alerting him with atrial fibrillation, about 4-5 times during last 7-10 days, and it could be at rest or if he was either walking upstairs at his work or doing other chores at home. He 'd notice some chest heaviness but had no CP. He's at times feel transient light headedness when he'd be getting the afib signal from his watch Denies Palpitations, or syncope. He has noted mild ankle swelling bilat over last 10 days to 2 weeks. Denies orthopnea. Denies calf pain or swelling. He denies h/o DM. TIA/ Stroke, DC, prior Cardiac Arrythmias or CHF. Denies having his Cholesterol checked in the past. Denies FH of DC/ Stroke/ Cardiac Arrythmias. He came to ED for evaluation. Status: Acute Plan: Admit to ICU Diltiazem Drip started in ED , continue same as VR still in 130s to 140s Add Metoprolol XR at 12.5 mg po daily, start now , hold for SBP < 110 or HR < 67 Echo in the morning Evaluate LVEF, Valvular structure, LA size, PASP CHADSVASC score is 1 ( HTN), however as pt may l be evaluated per Out patient Cardiology for possible cardioversion, shall continue anticoagulation Continue Apixaban 5 mg po bid Given h/o HTN, Obesity, Lipids unknown at this time , and new onset A fib, pt may need evaluation for CAD evaluation/ shall likely consider Cardiac Stress test/ Lexiscan as out pt Day Hospitalist consult Cardiology for recommendations TSH ordered per ED Monitor in ICU being on Diltiazen drip (2) Elevated brain natriuretic peptide (BNP) level: Problem details: Has mild peripheral edema bilat ankles/ and had been noting mild SOB with exertion, and at rest during A fib with RVR . No orthopnea O2 sats adequate on RA CTA chest with bilateral lower lobes opacities : unclear etiology Status: Acute Plan: Echo in the morning Daily weight (3) Elevated d-dimer: Problem details: As above , Elevated D dimer, in pt with new onset A fib with RVR, PE ruled out CTA chest: No Pulm Embolism Centrilobular pulmonary nodules mostly in the lower lungs, likely infectious/inflammatory. Consider future imaging surveillance to assess for resolution. Cardiomegaly. Status: Acute Plan: CTA chest done : No Pulm Embolism Has no fever, cough or Leukocytosis, doubt Infectious etiology Check CRP, ESR Repeat CT chest at a later date for resolution (4) GERD (gastroesophageal reflux disease): Problem details: Intermittent / Pt takes Omeprazole at home . No Dysphagia, No h/o PUD Qualifiers: Esophagitis presence: esophagitis presence not specified Qualified Code(s): K21.9 - Gastro-esophageal reflux disease without esophagitis Status: Acute Plan: Protonix 40 mg po daily Check H pylori as out pt (5) Obesity (BMI 30-39.9): Status: Acute Plan: Life style changes towards exercise and healthy diet Check Fasting Lipids and Hb A 1 C Time-Based Coding :: [TOTAL MINUTES] spent with patient and on the chart (including review of chart, obtaining history, exam, reviewing outside data, placing orders, documenting exam and treatment plan, and counseling patient) on [DATE].
[2024-11-05] VITALS (165 sets, daily range): BP systolic 93–121; BP diastolic 58–80; PULSE 55–141; RESP 8–28; TEMP 36.1–36.6; O2SAT 91–99; BMI 39.0
--- NOTE | 2024-11-05 | DI.ECHO.S_ITS ---
[facility]+ [facility] : : [address] : : [place] : : [id number] : : Phone: [phone] Echocardiogram Report + + :Name: TIANNA MUSE Study Date: 11/05/2024 Height: 71 in : :Hospital ReadingLocation: Weight: 280 lb : : Gender: Male BSA: 2.4 m2 : :: 1970 Age: 54 yrs BP: 104/65 mmHg: :Reason For Study: ATRIAL FIBRILLATION : :Ordering Physician: LUIZA, : :JEAN CLAUDE BACK Performed By: Rita Caicedo : :Referring: JEAN CLAUDE JARRETT MD : + + Interpretation Summary Normal left ventricle size with ejection fraction 55-60%. The aortic valve is slightly calcified. Mild mitral annular calcification. Mild mitral regurgitation. Procedure: A two-dimensional transthoracic echocardiogram with color flow and Doppler was performed. There is no prior echocardiogram noted for this patient. The study quality was technically difficult. The patient was in atrial fibrillation with heart rates between 91-120 bpm during the exam. Left Ventricle: The left ventricle is normal in size. There is normal left ventricular wall thickness. The ejection fraction is estimated to be 55-60%. There are no obvious focal wall motion abnormalities noted but poor endocardial definition reduces the sensitivity for the detection of such. Diastolic function could not be accurately assessed due to atrial fibrillation. Right Ventricle: The right ventricle is normal in size and function. Atria: The left atrial size is normal. Right atrial size is normal. There is no Doppler evidence for an interatrial shunt. Mitral Valve: The mitral valve leaflets appear mildly thickened, but open well. There is mild mitral annular calcification. There is mild mitral regurgitation. Aortic Valve: The aortic valve is trileaflet. The aortic valve opens well. The aortic valve is slightly calcified. There is no aortic valve stenosis. No aortic regurgitation is present. Tricuspid Valve: The tricuspid valve leaflets are thin and pliable. There is trace tricuspid regurgitation. The right ventricular systolic pressure is estimated to be at least 33 mmHg based on an estimated right atrial pressure of 8 mm Hg. Pulmonic Valve: The pulmonic valve leaflets are thin and pliable; valve motion is normal. There is mild pulmonic regurgitation. Great Vessels: The aortic root is normal size. The dimensions of the ascending aorta are normal. The IVC is dilated (diameter is greater than 2.1 cm) yet it collapses greater than 50% with a sniff. This suggests a right atrial pressure of 8 mm Hg. Pericardium/ Pleura There is no pericardial effusion. There is an anterior echo-free space consistent with a fat pad. There is no pleural effusion. MMode/2D Measurements & Calculations LVIDd: 4.9 cm LVOT diam: 2.1 cm LVIDs: 3.5 cm Ao root diam: 3.3 cm FS: 27.4 % asc Aorta Diam: 3.9 cm EPSS: 0.84 cm Ao Arch Diam (Prox Trans): 3.4 cm IVSd: 0.93 cm LVPWd: 0.85 cm LV bosch. diameter/BSA (cm/m^2): 2.0 LV sys. diameter/BSA (cm/m^2): 1.5 LA A2 area: 22.2 cm2 RA long axis: 5.5 cm LA A4 area: 22.4 cm2 RA area: 19.4 cm2 LA length (vol): 6.3 cm RA vol: 57.9 ml LA vol: 67.1 ml RA : 23.8 ml/m2 LA vol index: 27.6 ml/m2 IVC diam: 2.5 cm RVD1 (basal): 4.6 cm RVD2 (mid): 4.4 cm TAPSE: 1.8 cm Doppler Measurements & Calculations Ao V2 max: 96.2 cm/sec LVOT Max Eric: 88.7 cm/sec Ao V2 mean: 69.6 cm/sec LV V1 max P.2 mmHg Ao max P.7 mmHg LV V1 VTI: 16.3 cm Ao mean P.2 mmHg GAYLE(I,D): 3.1 cm2 Ao V2 VTI: 18.8 cm GAYLE(V,D): 3.3 cm2 sev ratio: 0.87 GAYLE indexed to BSA (cm^2/m^2): 1.3 MV E max eric: 81.7 cm/sec TR max eric: 207.5 cm/sec MV A max eric: 0.65 cm/sec TR max P.2 mmHg MV E/A: 125.4 PA V2 max: 83.2 cm/sec Med Peak E' Erci: 13.3 cm/sec PA V2 mean: 58.1 cm/sec E/E' med: 6.1 PA mean P.5 mmHg Lat Peak E' Eric: 13.9 cm/sec PA pr(Accel): 37.9 mmHg E/E' lat: 5.9 E/e' average: 6.0 MV dec time: 0.18 sec SV(LVOT): 58.6 ml Electronically signed by: Derrick reynoso Reading Physician:11/05/2024 10:08 AM
[2024-11-05] MEDS: METOPROLOL ER 25 MG TABLET 12.5 MG PO ×3 (02:55→10:39)
[2024-11-05 03:21] LABS: Troponin I < 0.012 ng/mL (0.01-0.034)
[2024-11-05] MEDS: dilTIAZem 125 MG in SODIUM CHLORIDE 0.9% 100 ML 15 MG IV (05:08)
[2024-11-05 06:20] LABS: Hemoglobin A1C% w Est Avg Glu 5.8 % (4.0-6.0)
[2024-11-05 06:21] LABS: Cholesterol 194 mg/dL (140-199); HDL Cholesterol 33 mg/dL (40-60); LDL Cholesterol Calculated 140 mg/dL (<100); Triglycerides 105 mg/dL (35-150)
[2024-11-05 06:24] LABS: Erythrocyte Sedimentation Rate 11 MM/HR (0-15)
[2024-11-05 06:33] LABS: Troponin I < 0.012 ng/mL (0.01-0.034)
[2024-11-05 06:53] LABS: BUN Creatinine Ratio 12.5 (6-22); Blood Urea Nitrogen 16 mg/dL (9-20); Calcium 9.3 mg/dL (8.4-10.2); Carbon Dioxide 22 mmol/L (22-32); Chloride 109 mmol/L (98-107); Estimated Glomerular Filt Rate > 60 mL/min (>60); Glucose 130 mg/dL (70-100); HEMOLYSIS < 15 (0-50); Sodium 139 mmol/L (137-145)
[2024-11-05] MEDS: PANTOPRAZOLE DR 40 MG TABLET PO (07:47)
[2024-11-05 08:13] LABS: MRSA (Nasal) PCR NOT DETECTED (Not Detect)
[2024-11-05] MEDS: APIXABAN 5 MG TABLET PO ×2 (08:25→20:14)
[2024-11-05] MEDS: dilTIAZem SR 60 MG PO (13:22)
--- NOTE | 2024-11-05 14:44 | CM.DANOTE ---
Initial DCP Assessment Visit Note Reviewed EMR and team rounds for patient's medical status and updates. Met with patient at bedside to introduce self and role. Patient was found to be alert and oriented. Patient was calm and cooperative during our conversation. Patient lives in his own home with his spouse and daughter. He is fully independent with self care and ADLs. He does not use any DME supplies. He drives himself and his spouse is also able to transport the patient if needed. Plan is to discharge home after leaving the hospital. Payor: Jacinta Montano PCP: Provider at [facility] Patient is a 54 year old male who present to the ER on 11/05/24 for irregular HR, shortness of breath, and chest discomfort that had been present for around two weeks. At the ER patient was diagnosed with AFIB with RVR, patient was placed on IV diltiazem. Patient appears to be doing well HR is now 82 bpm. IV medications appear to have been stopped. Patient has started PO diltiazem. Patient feels motivated to return back to his home after this hospitalization. DCP will continue to monitor for any evolving needs in relation to discharging home. Discharge Planning/Care Management CM Discharge Assessment Start: 11/05/24 14:38 Freq: Status: Active Protocol: Document 11/05/24 14:39 [place] (Rec: 11/05/24 14:43 [facility] [id number]) Discharge Planning Assessment Assigned Cardiac Rehab Nurse Pavel Shanks RN DPOA/Assigned Designee Name None Advance Directives? No: Patient said his spouse would help make decisions if he can't. Advance Directives on File No History Provided By Patient,Medical Record Expected Length of Stay 2 Has Patient been admitted in last 30 No days? Prior Living Arrangements House Household Members spouse,children Comment Patient lives at home with his spouse and daughter. Type of transporation used prior to Drives own vehicle admit Comment Patient typically drives himself, spouse can also transport him if needed. Independent with ADL's Yes Is patient alert and oriented? Yes Comment No assistance needed. Caregiver for Another No Comment None. Comment None. Comment None. Barriers to Discharge No Discharge Plan Home Transportation Arrangement Patient will self transport or his spouse will transport. Referrals Initiated None needed Inpatient Status as of 11/05/24 Whiteboard Updated in Patient Room with Yes name and ext. # of Cardiac Rehab Nurse Review Status In Process
--- NOTE | 2024-11-05 17:19 | P.HP_ITS ---
History of Present Illness History of Present Illness Date Patient Seen: 11/05/24 Time Patient Seen: 09:00 Chief complaint: afib with rvr Narrative: This is a 54 year old male with a past medical history of hypertension who presented with rapid heart rate as noted by his Apple watch as well as some mild shortness of breath. He was found to be in AFib with RVR in the emergency room and started on a diltiazem infusion. He had minimal improvement with oral metoprolol given this morning. Echocardiogram this afternoon showed a normal ejection fraction. He has been off of a diltiazem infusion since early this afternoon, currently controlled on oral diltiazem which seems to work better for his heart rate. He has also been started on oral apixaban at this time. His shortness of breath is improved. Evaluation including troponins for ACS was unremarkable. [facility] Medical History (Updated 11/05/24 @ 03:28 by Glory Ames MD) HTN (hypertension) Social History household members: spouse and children Smoking Status: Never smoker Meds Home Medications and Allergies Home Medications Medication Instructions Recorded Confirmed Type amlodipine 10 mg tablet 10 mg DAILY 11/05/24 11/05/24 History omeprazole 20 mg capsule,delayed 20 mg DAILY 11/05/24 11/05/24 History release Allergies Allergy/AdvReac Type Severity Reaction Status Date / Time aspirin Allergy Severe Swelling Verified 11/05/24 17:23 of Lip/Tongue/Throat Cherry [employer]atives Allergy Intermediate ITCHING Verified 11/05/24 09:20 Review of Systems Review of Systems Narrative: All other systems reviewed with the patient and are negative unless otherwise stated. Exam Vital Signs (past 8 hours): - 11/05/24 09:20 11/05/24 09:25 11/05/24 09:30 Temperature Pulse Rate Respiratory Rate Blood Pressure 108/70 Pulse Oximetry 96 94 11/05/24 09:30 11/05/24 09:35 11/05/24 09:40 Temperature Pulse Rate Respiratory Rate Blood Pressure Pulse Oximetry 95 97 95 11/05/24 09:45 11/05/24 09:50 11/05/24 09:55 Temperature Pulse Rate Respiratory Rate Blood Pressure Pulse Oximetry 96 96 95 11/05/24 10:00 11/05/24 10:01 11/05/24 10:01 Temperature Pulse Rate Respiratory Rate Blood Pressure 102/66 Pulse Oximetry 94 93 11/05/24 10:05 11/05/24 10:10 11/05/24 10:15 Temperature Pulse Rate Respiratory Rate Blood Pressure Pulse Oximetry 93 97 94 11/05/24 10:24 11/05/24 10:25 11/05/24 10:30 Temperature Pulse Rate Respiratory Rate Blood Pressure Pulse Oximetry 96 96 98 11/05/24 10:39 11/05/24 11:00 11/05/24 11:00 Temperature Pulse Rate 86 87 Respiratory Rate 18 Blood Pressure 116/69 119/75 Pulse Oximetry 97 99 11/05/24 11:05 11/05/24 11:05 11/05/24 11:08 Temperature Pulse Rate 82 Respiratory Rate Blood Pressure 119/75 119/75 Pulse Oximetry 97 11/05/24 11:10 11/05/24 11:15 11/05/24 11:20 Temperature Pulse Rate Respiratory Rate Blood Pressure Pulse Oximetry 98 97 98 11/05/24 11:25 11/05/24 11:30 11/05/24 11:30 Temperature Pulse Rate Respiratory Rate Blood Pressure 99/74 Pulse Oximetry 96 96 11/05/24 11:35 11/05/24 11:40 11/05/24 11:45 Temperature Pulse Rate Respiratory Rate Blood Pressure Pulse Oximetry 96 96 96 11/05/24 11:50 11/05/24 11:55 11/05/24 12:00 Temperature Pulse Rate Respiratory Rate Blood Pressure Pulse Oximetry 97 97 97 11/05/24 12:00 11/05/24 12:05 11/05/24 12:10 Temperature 97.9 F Pulse Rate Respiratory Rate Blood Pressure 106/80 Pulse Oximetry 98 97 11/05/24 12:15 11/05/24 12:20 11/05/24 12:25 Temperature Pulse Rate Respiratory Rate Blood Pressure Pulse Oximetry 98 97 97 11/05/24 12:30 11/05/24 12:30 11/05/24 12:35 Temperature Pulse Rate Respiratory Rate Blood Pressure 96/72 Pulse Oximetry 97 97 11/05/24 12:40 11/05/24 12:45 11/05/24 12:50 Temperature Pulse Rate Respiratory Rate Blood Pressure Pulse Oximetry 95 98 96 11/05/24 12:55 11/05/24 13:00 11/05/24 13:00 Temperature Pulse Rate Respiratory Rate Blood Pressure 102/73 Pulse Oximetry 96 96 11/05/24 13:05 11/05/24 13:10 11/05/24 13:15 Temperature Pulse Rate Respiratory Rate Blood Pressure Pulse Oximetry 96 95 95 11/05/24 13:20 11/05/24 13:25 11/05/24 13:30 Temperature Pulse Rate Respiratory Rate Blood Pressure Pulse Oximetry 96 96 97 11/05/24 13:30 11/05/24 13:35 11/05/24 13:40 Temperature Pulse Rate Respiratory Rate Blood Pressure 105/74 Pulse Oximetry 97 96 11/05/24 13:45 11/05/24 13:50 11/05/24 13:55 Temperature Pulse Rate Respiratory Rate Blood Pressure Pulse Oximetry 95 95 95 11/05/24 14:00 11/05/24 14:00 11/05/24 14:05 Temperature Pulse Rate Respiratory Rate Blood Pressure 110/79 Pulse Oximetry 96 95 11/05/24 14:10 11/05/24 14:15 11/05/24 14:20 Temperature Pulse Rate Respiratory Rate Blood Pressure Pulse Oximetry 96 95 96 11/05/24 14:25 11/05/24 14:30 11/05/24 14:30 Temperature Pulse Rate Respiratory Rate Blood Pressure 105/76 Pulse Oximetry 96 94 Oxygen Delivery Method Room Air Oxygen Flow Rate 0 Narrative Exam Narrative: General:? Patient is well developed and well nourished, in no distress at this time. HEENT:? Normocephalic, atraumatic, extraocular muscles intact, oral pharynx is clear and mucous membranes are moist. Neck: supple and symmetric, trachea is midline, no cervical adenopathy. Negative for JVD Chest:? Normal AP diameter and contour without kyphoscoliosis, no tachypnea, equal chest rise bilaterally. Lungs:? CTA b/l no wheezing rhonchi or rales. Cardio:? Irregularly irregular rhythm with a normal rate, no murmurs, rubs, or gallops. Abdomen: S NT ND. Musculoskeletal:? Muscle strength and tone are equal within normal limits, no deformity. Extremities: No edema or joint effusions. No cyanosis or clubbing. Skin:? Pale,? Warm to touch,dry and intact without rashes, ulcerations or petechiae.? Neuro:? Alert and orientated x3,? sensation to touch intact in all extremities, no gross deficits noted of cranial nerves. Psych:? Patient has a well-kept appearance, appropriate affect, mental status attitude thought context and judgment are appropriate for age. Objective ECG Impression: Atrial fibrillation with rapid ventricular response, nonspecific ST and T-wave abnormalities no indications of acute ischemia Labs 11/04/24 21:06 11/05/24 05:57 Labs: Laboratory Results - last 24 hr 11/04/24 11/05/24 11/05/24 21:06 02:50 05:57 WBC 7.7 RBC 4.84 Hgb 13.6 Hct 41.0 MCV 84.6 MCH 28.1 MCHC 33.2 RDW 13.1 Plt Count 428 H Neut % (Auto) 44.7 L Lymph % (Auto) 40.1 H [place] % (Auto) 9.6 Eos % (Auto) 4.8 H Baso % (Auto) 0.8 Neut # (Auto) 3400 Lymph # (Auto) 3100 [place] # (Auto) 700 Eos # (Auto) 400 Baso # (Auto) 100 ESR 11 PT 11.4 INR 1.0 APTT 37 H D-Dimer 885 H Sodium 142 139 Potassium 3.7 4.0 Chloride 110 H 109 H Carbon Dioxide 25 22 BUN 15 16 Creatinine 1.60 H 1.28 H Estimated GFR 51 L > 60 BUN/Creatinine Ratio 9.4 12.5 Glucose 109 H 130 H Hemoglobin A1c 5.8 Calcium 9.0 9.3 Magnesium 1.9 Total Bilirubin 0.5 AST 31 ALT 33 Alkaline Phosphatase 169 H Total Creatine Kinase 139 Troponin I < 0.012 < 0.012 < 0.012 NT-Pro-B Natriuret Pep 914 H Total Protein 7.8 Albumin 4.2 Globulin 3.6 Albumin/Globulin Ratio 1.2 Triglycerides 105 Cholesterol 194 LDL Cholesterol, Calc 140 H HDL Cholesterol 33 L Lipase 110 TSH 3.23 Nasal Screen MRSA (PCR) 11/05/24 06:52 WBC RBC Hgb Hct MCV MCH MCHC RDW Plt Count Neut % (Auto) Lymph % (Auto) [place] % (Auto) Eos % (Auto) Baso % (Auto) Neut # (Auto) Lymph # (Auto) [place] # (Auto) Eos # (Auto) Baso # (Auto) ESR PT INR APTT D-Dimer Sodium Potassium Chloride Carbon Dioxide BUN Creatinine Estimated GFR BUN/Creatinine Ratio Glucose Hemoglobin A1c Calcium Magnesium Total Bilirubin AST ALT Alkaline Phosphatase Total Creatine Kinase Troponin I NT-Pro-B Natriuret Pep Total Protein Albumin Globulin Albumin/Globulin Ratio Triglycerides Cholesterol LDL Cholesterol, Calc HDL Cholesterol Lipase TSH Nasal Screen MRSA (PCR) Not detected Assessment & Plan Assessment & Plan narrative: 1. New diagnosis of atrial fibrillation with rapid ventricular response - TTE with normal EF 50-55% - transition to PO diltiazem, seems to work better for him than metoprolol at this time - transition from 60 mg TID short acting dilt to 180 mg extended release dilt this evening. Now weaned off of diltiazem infusion. - if rate control stable, given mildly soft BP this evening, can discharge possibly tomorrow. - continue apixaban 5 mg BID. patient allergic to aspirin with facial swelling. We discussed risks and benefits of anticoagulation with his CHADS2-VASC of 1. Given aspirin allergy elects anticoagulation for stroke prevention with apixaban. - ACS ruled out, troponins were negative x2. - CTA negative, likely in the setting of chronic DIONY. 2. HTN - stop amlodipine in favor of above diltiazem - BP are slightly soft with diltiazem, monitor additionally overnight and transition to home diltiazem daily. 3. DIONY - can use home CPAP machine if he brings this in. He states he uses it religiously at home. 4. PRASHANT - improving today, monitor renal function with BMP tomorrow. K 4.0 today, Mg 1.9. Code: Full, surrogate is patient's spouse DVT: On apixaban I have utilized all available immediate resources to obtain, update, or review the patient's current medications. Dispo: Observation in ICU initially, now stable for observation, probable discharge home tomorrow. Additional history obtained via discussions with the overnight provider, bedside RN today. These discussions contributed to the creation of the above assessment and plan. I have reviewed patient's presenting documentation, labs, and imaging personally. Time-Based Coding :: [TOTAL MINUTES] spent with patient and on the chart (including review of chart, obtaining history, exam, reviewing outside data, placing orders, documenting exam and treatment plan, and counseling patient) on [DATE]. Scores CHADS-VASc Congestive heart failure: no Hypertension: yes Age 75 years or older: no Diabetes mellitus: no Stroke, TIA, or TE: no Vascular disease: no Age 65 to 74 years: no Sex category (female): Male CHADS-VASc Score: 1
[2024-11-05] MEDS: dilTIAZem CD 180 MG CAP PO (17:50)
--- NOTE | 2024-11-05 18:11 | PC.NURSE ---
pt was started on po diltiazem and drip was discontinued; pt was wanting to discharge home; Dr Burgos came and spoke w/ pt and and pt agreed to stay overnight to evaluate med dosage changes; pt remains in a-fib, mainly in the 90s but does increase briefly to 100s
[2024-11-05] MEDS: SODIUM CHLORIDE 0.9% FLUSH 10 ML IV ×2 (20:15→20:54)
[2024-11-06 03:03] VITALS: O2SAT 97
[2024-11-06 03:04] VITALS: BP 120/69; PULSE 89; RESP 20; TEMP 37.2; O2SAT 95
[2024-11-06 03:36] LABS: CRP, High Sensitivity 5.76 mg/L (0.00-3.00)
[2024-11-06 05:00] LABS: BUN Creatinine Ratio 11.8 (6-22); Blood Urea Nitrogen 15 mg/dL (9-20); Calcium 8.6 mg/dL (8.4-10.2); Carbon Dioxide 23 mmol/L (22-32); Chloride 109 mmol/L (98-107); Estimated Glomerular Filt Rate > 60 mL/min (>60); Glucose 168 mg/dL (70-100); HEMOLYSIS < 15 (0-50); Potassium 3.7 mmol/L (3.4-5.1); Sodium 139 mmol/L (137-145)
[2024-11-06 08:55] VITALS: BP 113/77; PULSE 90; RESP 19; TEMP 36.4; O2SAT 96
[2024-11-06] MEDS: PANTOPRAZOLE DR 40 MG TABLET PO (09:01)
[2024-11-06] MEDS: APIXABAN 5 MG TABLET PO (09:02)
--- NOTE | 2024-11-06 09:30 | P.DS_ITS ---
History of Present Illness History of Present Illness Date Patient Seen: 11/06/24 Time Patient Seen: 09:00 Chief complaint: afib with rvr Narrative: Per admitting provider, This is a 54 year old male with a past medical history of hypertension who presented with rapid heart rate as noted by his Apple watch as well as some mild shortness of breath. He was found to be in AFib with RVR in the emergency room and started on a diltiazem infusion. He had minimal improvement with oral metoprolol given this morning. Echocardiogram this afternoon showed a normal ejection fraction. He has been off of a diltiazem infusion since early this afternoon, currently controlled on oral diltiazem which seems to work better for his heart rate. He has also been started on oral apixaban at this time. His shortness of breath is improved. Evaluation including troponins for ACS was unremarkable. Discharge Providers Provider Date of admission: 11/05/24 00:43 Discharge Date: 11/06/24 Primary care physician: Quita CABRERA Provider Discharge provider: DO Claudio Cruz Hospital Course Discharge Diagnosis: 1. New diagnosis of atrial fibrillation with rapid ventricular response 2. HTN 3. DIONY 4. PRASHANT Hospital Course: 54 year old male with PMH of DIONY and HTN admitted with afib with RVR after being detected by his apple watch at home. Rate improved on diltiazem infusion initially, TTE showed EF of 50-55%. CTA was negative for PE. Troponins were negative and EKG was non-ischemic appearing. He did not have adequate rate control with metoprolol, but improved with oral diltiazem at 180 mg daily which was started after his TTE resulted. Patient is allergic to aspirin, and CHADS2- VASC of 1, and patient elected for DOAC for anticoagulation and stroke prevention on discharge. He was normotensive on diltiazem alone and his home amlodipine was held on discharge. Recommend PCP follow up for further afib management, and possible outpatient referral to cardiology. Time Spent with Patient Time spent: Less than 30 minutes Exam Vital Signs (past 8 hours): - 11/06/24 03:03 11/06/24 03:04 11/06/24 03:04 Temperature 98.9 F Pulse Rate 89 Respiratory Rate 20 Blood Pressure 120/69 Pulse Oximetry 97 95 Oxygen Delivery Method Oxygen Flow Rate 0 11/06/24 08:00 11/06/24 08:55 Temperature 97.6 F Pulse Rate 90 Respiratory Rate 19 Blood Pressure 113/77 Pulse Oximetry 96 Oxygen Delivery Method Room Air Oxygen Flow Rate 0 Oxygen Delivery Method Room Air Oxygen Flow Rate 0 Narrative Exam Narrative: General:? Patient is well developed and well nourished, in no distress at this time. HEENT:? Normocephalic, atraumatic, extraocular muscles intact, oral pharynx is clear and mucous membranes are moist. Neck: supple and symmetric, trachea is midline, no cervical adenopathy. Negative for JVD Chest:? Normal AP diameter and contour without kyphoscoliosis, no tachypnea, equal chest rise bilaterally. Lungs:? CTA b/l no wheezing rhonchi or rales. Cardio:? Irregularly irregular rhythm with a normal rate, no murmurs, rubs, or gallops. Abdomen: S NT ND. Musculoskeletal:? Muscle strength and tone are equal within normal limits, no deformity. Extremities: No edema or joint effusions. No cyanosis or clubbing. Skin:? Pale,? Warm to touch,dry and intact without rashes, ulcerations or petechiae.? Neuro:? Alert and orientated x3,? sensation to touch intact in all extremities, no gross deficits noted of cranial nerves. Psych:? Patient has a well-kept appearance, appropriate affect, mental status attitude thought context and judgment are appropriate for age. Objective Labs 11/04/24 21:06 11/06/24 04:18 Labs: Laboratory Results - last 24 hr 11/05/24 11/06/24 05:57 04:18 Sodium 139 Potassium 3.7 Chloride 109 H Carbon Dioxide 23 BUN 15 Creatinine 1.27 H Estimated GFR > 60 BUN/Creatinine Ratio 11.8 Glucose 168 H Calcium 8.6 Magnesium 2.0 C-React Prot High Sens 5.76 H [facility] Medical History (Updated 11/05/24 @ 03:28 by Glory Ames MD) HTN (hypertension) Social History household members: spouse and children Smoking Status: Never smoker Discharge Plan Discharge Plan Patient Disposition: Home Provider Discharge Comment: You were admitted to the hospital with new diagnosis of atrial fibrillation with rapid heart rate. Continue medication to slow your heart rate down. Continue blood thinner for stroke prevention. 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 Feel free to change the time you take the diltiazem to whenever works best for you. Discharge orders & Medications Prescriptions: New Eliquis 5 mg Tablet 5 mg PO BID 90 Days Qty: 180 0RF diltiazem HCl [Cardizem CD] 180 mg Capsule,Extended Release 24hr 180 mg PO 1800 90 Days Qty: 90 0RF Continued omeprazole 20 mg capsule,delayed release(DR/EC) 20 mg DAILY Discontinued amlodipine 10 mg tablet 10 mg DAILY Follow up/Referrals: ProviderQuita [Primary Care Provider] - Diet/Activity/Treatments Diet: Diet as Tolerated Activity: As tolerated, no restrictions Visit Report/Discharge Packet Instructions: Atrial Fibrillation, DI for Atrial Fibrillation, Diltiazem, Apixaban Stand Alone Forms: Patient Portal/API, Stroke Signs & Symptoms Discharge Data Primary Care Provider: Quita Summers
--- NOTE | 2024-11-06 10:21 | CM.DPNOTE ---
Addendum entered by TED Barajas 11/06/24 12:14: RN notified this PAINTER ASSISTANT that pt was asking about FMLA paperwork as he was leaving. PAINTER ASSISTANT met with pt in waiting room. pt asked for FMLA ppwrk for him and spouse. PAINTER ASSISTANT updated pt that spouse would not qualify for FMLA because she's not technically required as a caregiver. PAINTER ASSISTANT completed FMLA paperwork with provider signature for pt's dates admitted to hospital. pt appreciative. denies other needs or questions at this time. SL Original Note: DCP note PAINTER ASSISTANT reviewed EMR Per provider in morning rounds, plan to dc pt today. Per previous CM assessment/RN report, no CM needs identified. P: dc today with spouse/dtr support, transport with family in POV. OP f/u recommended. no CM needs at this time. will continue to follow as needed TED Barajas
[2024-11-06] MEDS: dilTIAZem CD 180 MG CAP PO (10:42)
== END 2024-11-06 11:10 | disposition home or self-care (01) | DRG 309 ==
LOC: ED 23:40 → AC 11-05 00:43 → ICU 11-05 00:58
PROVIDERS: Internal Medicine; Admitting Provider Hospitalist; Emergency Provider Emergency Medicine; Referring Provider Emergency Medicine; Visit Provider Hospitalist
DX: I48.91 Unspecified atrial fibrillation (principal); N17.9 Acute kidney failure, unspecified; E66.9 Obesity, unspecified; I10 Essential (primary) hypertension; K21.9 Gastro-esophageal reflux disease without esophagitis; R79.89 Other specified abnormal findings of blood chemistry; G47.33 Obstructive sleep apnea (adult) (pediatric); Z68.39 Body mass index [BMI] 39.0-39.9, adult
CPT/HCPCS: 36415; 71045; 71275; 80048; 80053; 80061; 82550; 83036; 83690; 83735; 83880; 84443; 84484; 85025; 85379; 85610; 85651; 85730; 86140; 87797; 93005; 93010; 93306; 94660; 96365; 96366; 99284; 99285; Q9967

== ENCOUNTER 2025-01-07 17:08 | Inpatient (IN) | payer OTHER, SELFPAY ==
[2024-11-05 00:51] VITALS: BMI 39.0
[2025-01-07] VITALS (64 sets, daily range): BP systolic 102–164; BP diastolic 61–115; PULSE 77–175; RESP 11–47; TEMP 36.3; O2SAT 88–96; BMI 44.4
--- NOTE | 2025-01-07 17:17 | DI.RAD.S_ITS ---
PROCEDURE: XR CHEST 1V INDICATIONS: Shortness of breath TECHNIQUE: One view of the chest was acquired. COMPARISON: [facility], CR, XR CHEST 1V, 11/04/2024, 21:14. FINDINGS: Surgical changes and devices: None. Lungs and pleura: Small bilateral pleural effusions. Prominent interstitial markings with a lower lung field predominance. Mediastinum: Mediastinal contours appear normal. Heart size is enlarged. Bones and chest wall: No suspicious bony lesions. Overlying soft tissues appear unremarkable. IMPRESSION: Cardiomegaly with small effusions and prominent interstitial markings concerning for pulmonary edema/congestive heart failure. Recommend clinical correlation. Dictated by: Mt Rosario M.D. on 01/07/2025 at 18:27 Approved by: Mt Rosario M.D. on 01/07/2025 at 18:28
--- NOTE | 2025-01-07 17:19 | EKG_ITS ---
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
--- NOTE | 2025-01-07 17:36 | ED.SOB ---
HPI - SOB/Dyspnea <DO Josue Jacobsen Last Filed: 01/08/25 09:32> General Chief Complaint: Shortness of Breath/Dyspnea Stated Complaint: SOB, poss fluid on lungs hx Afib swelling LE Time Seen by Provider: 01/07/25 17:31 Source: patient, RN notes reviewed and old records reviewed Mode of arrival: Ambulatory Limitations: no limitations History of Present Illness HPI Narrative: 54-year-old male with a history of hypertension diagnosed with new onset atrial fibrillation in October 2024. Patient states since then he has been on Eliquis, diltiazem and omeprazole. Patient states he has been getting use to his medications he has been having increasing shortness of breath over time and noticed some increasing swelling in his lower extremities. He has had some cough. He denies any chest pain states he has had some pressure and sort of his epigastric area. He has had some mild lightheadedness but no syncope. He denies any nausea or vomiting. Notes he had some blood in his stool the other day so at called his primary care went to the office today and was found to have a heart rate in the 60s but also low blood pressure as well and was told to come to the ER. Patient denies any persistent black or bloody stools. Patient notes an allergy to aspirin states he gets anaphylaxis or swelling in his tongue as well as an allergy to vitamin-C. States no prior surgeries. No prior cardioversions. He has follow up with Cardiology this coming Tuesday with [facility]. Related Data Home Medications Medication Instructions Recorded Confirmed omeprazole 20 mg capsule,delayed 20 mg PO DAILY 11/05/24 01/08/25 release diltiazem HCl 180 mg 180 mg PO 0600 01/08/25 01/08/25 capsule,extended release 24 hr (Cardizem CD) Previous Rx's Medication Instructions Recorded apixaban 5 mg tablet (Eliquis) 5 mg PO BID 90 days #180 tabs 11/06/24 Allergies Allergy/AdvReac Type Severity Reaction Status Date / Time aspirin Allergy Severe Swelling Verified 11/05/24 17:23 of Lip/Tongue/Throat [place] And Derivatives Allergy Intermediate ITCHING Verified 11/05/24 09:20 Review of Systems <DO Josue Jacobsen Last Filed: 01/08/25 09:32> Review of Systems ROS Unobtainable: All systems reviewed & are unremarkable except as noted in HPI and below Patient History <Munira Torrez, DO - Last Filed: 01/08/25 09:32> Medical History HTN (hypertension) Social History household members: spouse and children Smoking Status: Never smoker alcohol intake frequency: 0-2 drinks per day Exam <Munira Torrez, DO - Last Filed: 01/08/25 09:32> Narrative Exam Narrative: GENERAL: Alert and oriented x three, obese male in moderate distress HEENT: Head normocephalic, atraumatic, EOMI, pupils reactive, face symmetric, moist mucous membranes NECK: Supple, full range of motion CARDIOVASCULAR: Irregularly irregular and tachycardic without murmurs, rubs or gallops. Patient was bilateral lower extremity edema. RESPIRATORY: Breath sounds equal bilaterally, no wheezes, no rhonchi. Crackles in bases. ABDOMEN: Soft, nontender. Normoactive bowel sounds all 4 quadrants. No guarding or rebound, rigidity, no mass : No CVA tenderness EXTREMITIES: Normal range of motion, no clubbing or edema. Neurovascularly intact NEUROLOGICAL: Cranial nerves II through XII grossly intact. Moving all extremities SKIN: Warm, dry, no petechiae, no rashes or lesions. Initial Vital Signs Initial Vital Signs: Vital Signs Temperature 97.3 F L 01/07/25 17:13 Pulse Rate 130 H 01/07/25 17:13 Respiratory Rate 18 01/07/25 17:13 Blood Pressure 154/100 H 01/07/25 17:13 Pulse Oximetry 91 01/07/25 17:13 Oxygen Delivery Method Room Air 01/07/25 17:13 <Kymberly Altamirano, DO - Last Filed: 01/08/25 02:52> Initial Vital Signs Initial Vital Signs: Vital Signs Temperature 97.3 F L 01/07/25 17:13 Pulse Rate 130 H 01/07/25 17:13 Respiratory Rate 18 01/07/25 17:13 Blood Pressure 154/100 H 01/07/25 17:13 Pulse Oximetry 91 01/07/25 17:13 Oxygen Delivery Method Room Air 01/07/25 17:13 Procedures <Kymberly Altamirano, DO - Last Filed: 01/08/25 02:52> Cardioversion Consent Signed: Yes Indication: AFib with RVR Stability: Stable Number of attempts (shocks): 2 Joules used: 120 and 150 Cardiac rhythm post-cardioversion: AFib with RVR Procedural Sedation Consent signed: Yes Time out performed: Yes Indication: cardioversion ASA Class: II Mallampati Airway Classification: Class III IV Propofol dose (mg): 60 Intraservice time/total sedation time (min): 12 ED Sedation Level: Moderate (Concious) Patient Tolerated Procedure: Well and No complications Complications: none Course <Munira Torrez, - Last Filed: 01/08/25 09:32> Orders Ordered: Acetaminophen (Acetaminophen 325 Mg Tablet) 650 mg PO Q6H PRN PRN Reason: Fever/Mild Pain (1-3) Last Admin: 01/08/25 01:43 Dose: 650 mg Documented By: RADHA Apixaban (Apixaban 5 Mg Tablet) 5 mg PO BID JOYCE Last Admin: 01/08/25 09:07 Dose: 5 mg Documented By: BURTON Diltiazem HCl (Diltiazem Sr 60 Mg) 60 mg PO Q8H JOYCE Last Admin: 01/08/25 09:07 Dose: 60 mg Documented By: BURTON Amiodarone HCl/Dextrose (Nexterone) 360 mg in 200 mls @ 16.7 mls/hr IV CONT JOYCE; Protocol Stop: 01/08/25 18:44 Last Admin: 01/08/25 06:52 Dose: 16.7 mls/hr, 16.7 mls/hr Documented By: RADHA Amiodarone HCl/Dextrose (Nexterone) 180 mg in 100 mls @ 16.7 mls/hr IV CONT JOYCE; Protocol Stop: 01/09/25 00:45 Naloxone HCl (Naloxone 0.4 Mg/Ml Vial) 0.2 mg IV Q2MIN PRN PRN Reason: Opiate Reversal Ondansetron HCl (Ondansetron 4 Mg/2 Ml Inj) 4 mg IV NOW PRN PRN Reason: Nausea And Vomiting Ondansetron HCl (Ondansetron 4 Mg Odt) 4 mg SL NOW PRN PRN Reason: Nausea And Vomiting Sodium Chloride (Sodium Chloride 0.9% Flush) 10 ml IV PRN PRN PRN Reason: Flush Sodium Chloride (Sodium Chloride 0.9% Flush) 10 ml IV BID [facility] Last Admin: 01/08/25 09:07 Dose: 10 ml Documented By: BURTON Discontinued Medications Digoxin (Digoxin 500 Mcg/2 Ml Ampul) 500 mcg IV NOW ONE Stop: 01/07/25 23:15 Last Admin: 01/07/25 23:27 Dose: 500 mcg Documented By: VINICIO Diltiazem HCl (Diltiazem 25 Mg/5 Ml Sdv) 10 mg IV NOW ONE Stop: 01/07/25 17:37 Last Admin: 01/07/25 17:40 Dose: 10 mg Documented By: Furosemide (Furosemide 40 Mg/4 Ml Vial) 40 mg IV NOW ONE Stop: 01/07/25 18:11 Last Admin: 01/07/25 18:18 Dose: 40 mg Documented By: Diltiazem HCl 125 mg/ Sodium (Chloride) 125 mls @ 5 mls/hr IV TITRATE [facility]; Protocol Last Titration: 01/07/25 20:33 Dose: 0 mg/hr, 0 mls/hr Documented By: Titration: 01/07/25 19:15 Dose: 15 mg/hr, 15 mls/hr Documented By: Titration: 01/07/25 18:48 Dose: 10 mg/hr, 10 mls/hr Documented By: Admin: 01/07/25 18:23 Dose: 5 mg/hr, 5 mls/hr Documented By: Amiodarone HCl/Dextrose (Nexterone) 150 mg in 100 mls @ 600 mls/hr IV NOW ONE; Protocol Stop: 01/08/25 00:03 Last Infusion: 01/08/25 00:36 Dose: Infused Documented By: RLJoaquina Admin: 01/08/25 00:20 Dose: 600 mls/hr Documented By: VINICIO Amiodarone HCl/Dextrose (Nexterone) 360 mg in 200 mls @ 33.333 mls/hr IV NOW ONE; Protocol Stop: 01/08/25 05:54 Last Titration: 01/08/25 07:09 Dose: 0 mls/hr, 0 mls/hr Documented By: [facility] Admin: 01/08/25 01:16 Dose: 33.3 mls/hr, 33.3 mls/hr Documented By: RADHA Amiodarone HCl/Dextrose (Nexterone) 180 mg in 100 mls @ 16.7 mls/hr IV CONT JOYCE; Protocol Stop: 01/08/25 12:15 Last Admin: 01/08/25 07:26 Dose: Not Given Documented By: BURTON Metoprolol Tartrate (Metoprolol Tartrate 5 Mg/5 Ml Inj) 5 mg IV NOW ONE Stop: 01/07/25 19:45 Last Admin: 01/07/25 19:50 Dose: 5 mg Documented By: Metoprolol Tartrate (Metoprolol Tartrate 5 Mg/5 Ml Inj) 5 mg IV NOW ONE Stop: 01/07/25 20:31 Last Admin: 01/07/25 20:37 Dose: 5 mg Documented By: Metoprolol Tartrate (Metoprolol Tartrate 5 Mg/5 Ml Inj) 5 mg IV NOW ONE Stop: 01/07/25 23:06 Last Admin: 01/07/25 23:18 Dose: 5 mg Documented By: VINICIO Pantoprazole Sodium (Pantoprazole 40 Mg Vial) 80 mg IV NOW ONE Stop: 01/07/25 17:24 Last Admin: 01/07/25 17:41 Dose: 80 mg Documented By: Potassium Chloride (Potassium Chloride 20 Meq Tab) 40 meq PO NOW ONE Stop: 01/08/25 08:31 Last Admin: 01/08/25 09:07 Dose: 40 meq Documented By: BURTON Propofol (Propofol 200 Mg/20 Ml Vial) 130 mg 1 mg/kg (130 mg) IV NOW ONE Stop: 01/07/25 22:32 Last Admin: 01/07/25 22:56 Dose: 60 mg Documented By: VINICIO Vital Signs Vital signs: Vital Signs - 8 hr 01/07/25 18:50 01/07/25 18:50 01/07/25 18:56 Pulse Rate 173 H 156 H Respiratory Rate 47 H 32 H Blood Pressure 125/81 Pulse Oximetry 92 94 Oxygen Delivery Method Oxygen Flow Rate 01/07/25 18:56 01/07/25 19:00 01/07/25 19:01 Pulse Rate 156 H 152 H Respiratory Rate 36 H 33 H Blood Pressure 113/61 Pulse Oximetry 93 93 Oxygen Delivery Method Oxygen Flow Rate 01/07/25 19:01 01/07/25 19:05 01/07/25 19:05 Pulse Rate 158 H Respiratory Rate 34 H Blood Pressure 149/76 H 142/83 H Pulse Oximetry 94 Oxygen Delivery Method Nasal Cannula Oxygen Flow Rate 2 01/07/25 19:11 01/07/25 19:11 01/07/25 19:15 Pulse Rate 157 H Respiratory Rate 36 H Blood Pressure 126/94 H 120/101 H Pulse Oximetry 93 Oxygen Delivery Method Oxygen Flow Rate 01/07/25 19:15 01/07/25 19:25 01/07/25 19:25 Pulse Rate 154 H 151 H Respiratory Rate 30 H 37 H Blood Pressure 149/96 H Pulse Oximetry 93 94 95 Oxygen Delivery Method Nasal Cannula Oxygen Flow Rate 2 01/07/25 19:30 01/07/25 19:30 01/07/25 19:35 Pulse Rate 151 H Respiratory Rate 39 H Blood Pressure 120/78 139/82 Pulse Oximetry 93 Oxygen Delivery Method Oxygen Flow Rate 01/07/25 19:35 01/07/25 19:40 01/07/25 19:40 Pulse Rate 153 H 144 H Respiratory Rate 33 H 36 H Blood Pressure 142/85 H Pulse Oximetry 92 94 Oxygen Delivery Method Oxygen Flow Rate 01/07/25 19:46 01/07/25 19:46 01/07/25 19:50 Pulse Rate 149 H Respiratory Rate 26 H Blood Pressure 154/93 H 164/103 H Pulse Oximetry 94 Oxygen Delivery Method Oxygen Flow Rate 01/07/25 19:50 01/07/25 19:56 01/07/25 19:56 Pulse Rate 160 H 154 H Respiratory Rate 41 H 34 H Blood Pressure 154/95 H Pulse Oximetry 94 95 Oxygen Delivery Method Oxygen Flow Rate 01/07/25 20:00 01/07/25 20:00 01/07/25 20:05 Pulse Rate 133 H 131 H Respiratory Rate 28 H 11 L Blood Pressure 144/92 H Pulse Oximetry 95 96 Oxygen Delivery Method Nasal Cannula Oxygen Flow Rate 2 01/07/25 20:05 01/07/25 20:10 01/07/25 20:10 Pulse Rate 127 H Respiratory Rate 31 H Blood Pressure 124/78 140/91 H Pulse Oximetry 94 Oxygen Delivery Method Oxygen Flow Rate 01/07/25 20:15 01/07/25 20:15 01/07/25 20:20 Pulse Rate 140 H 140 H Respiratory Rate 38 H 35 H Blood Pressure 127/92 H Pulse Oximetry 94 93 Oxygen Delivery Method Nasal Cannula Oxygen Flow Rate 2 01/07/25 20:20 01/07/25 20:25 01/07/25 20:25 Pulse Rate 142 H Respiratory Rate 37 H Blood Pressure 144/95 H 129/103 H Pulse Oximetry 95 Oxygen Delivery Method Oxygen Flow Rate 01/07/25 20:30 01/07/25 20:30 01/07/25 20:35 Pulse Rate 133 H 145 H Respiratory Rate 36 H 44 H Blood Pressure 132/102 H Pulse Oximetry 94 93 Oxygen Delivery Method Oxygen Flow Rate 01/07/25 20:35 01/07/25 20:40 01/07/25 20:40 Pulse Rate 149 H Respiratory Rate 35 H Blood Pressure 134/95 H 143/87 H Pulse Oximetry 94 Oxygen Delivery Method Oxygen Flow Rate 01/07/25 20:45 01/07/25 20:45 01/07/25 20:50 Pulse Rate 144 H Respiratory Rate 36 H Blood Pressure 127/64 130/73 Pulse Oximetry 94 Oxygen Delivery Method Oxygen Flow Rate 01/07/25 20:50 01/07/25 20:55 01/07/25 21:00 Pulse Rate 137 H 136 H 142 H Respiratory Rate 34 H 37 H 32 H Blood Pressure 129/99 H 121/100 H Pulse Oximetry 92 92 92 Oxygen Delivery Method Nasal Cannula Oxygen Flow Rate 2 01/07/25 21:05 01/07/25 21:10 01/07/25 21:20 Pulse Rate 143 H 145 H 149 H Respiratory Rate 42 H 34 H 28 H Blood Pressure 129/97 H 135/87 Pulse Oximetry 91 93 91 Oxygen Delivery Method Oxygen Flow Rate 01/07/25 21:25 01/07/25 21:30 01/07/25 21:35 Pulse Rate 144 H 146 H 147 H Respiratory Rate 30 H 36 H 32 H Blood Pressure 121/94 H 102/87 Pulse Oximetry 90 L 90 L 91 Oxygen Delivery Method Oxygen Flow Rate 01/07/25 21:35 01/07/25 21:40 01/07/25 21:40 Pulse Rate 152 H Respiratory Rate 21 Blood Pressure 144/97 H 141/103 H Pulse Oximetry 90 L Oxygen Delivery Method Oxygen Flow Rate 01/07/25 21:45 01/07/25 21:45 01/07/25 21:49 Pulse Rate 152 H 146 H Respiratory Rate 29 H 30 H Blood Pressure 143/112 H Pulse Oximetry 92 94 Oxygen Delivery Method Oxygen Flow Rate 01/07/25 21:49 01/07/25 21:50 01/07/25 21:50 Pulse Rate 151 H Respiratory Rate 30 H Blood Pressure 146/108 H 143/108 H Pulse Oximetry 94 Oxygen Delivery Method Oxygen Flow Rate 01/07/25 21:55 01/07/25 21:55 01/07/25 22:00 Pulse Rate 147 H 150 H Respiratory Rate 35 H 30 H Blood Pressure 138/105 H Pulse Oximetry 94 92 Oxygen Delivery Method Oxygen Flow Rate 01/07/25 22:00 01/07/25 22:05 01/07/25 22:05 Pulse Rate 153 H Respiratory Rate 31 H Blood Pressure 145/108 H 157/96 H Pulse Oximetry 88 L Oxygen Delivery Method Oxygen Flow Rate 01/07/25 22:11 01/07/25 22:11 01/07/25 22:15 Pulse Rate 154 H 152 H Respiratory Rate 23 21 Blood Pressure 136/104 H Pulse Oximetry 92 92 Oxygen Delivery Method Oxygen Flow Rate 01/07/25 22:15 01/07/25 22:20 01/07/25 22:20 Pulse Rate 153 H Respiratory Rate 22 Blood Pressure 130/99 H 121/101 H Pulse Oximetry 93 Oxygen Delivery Method Oxygen Flow Rate 01/07/25 22:25 01/07/25 22:25 01/07/25 22:30 Pulse Rate 154 H 161 H Respiratory Rate 31 H 24 Blood Pressure 131/104 H Pulse Oximetry 91 92 Oxygen Delivery Method Oxygen Flow Rate 01/07/25 22:30 01/07/25 22:35 01/07/25 22:35 Pulse Rate 159 H Respiratory Rate 34 H Blood Pressure 137/101 H 125/101 H Pulse Oximetry 90 L Oxygen Delivery Method Oxygen Flow Rate 01/07/25 22:40 01/07/25 22:40 01/07/25 22:45 Pulse Rate 160 H 165 H Respiratory Rate 29 H 28 H Blood Pressure 133/109 H Pulse Oximetry 95 92 Oxygen Delivery Method Oxygen Flow Rate 01/07/25 22:45 01/07/25 22:50 01/07/25 22:50 Pulse Rate 163 H Respiratory Rate 32 H Blood Pressure 126/110 H 131/115 H Pulse Oximetry 91 Oxygen Delivery Method Oxygen Flow Rate 01/07/25 22:55 01/07/25 22:55 01/07/25 23:00 Pulse Rate 169 H 166 H Respiratory Rate 38 H 33 H Blood Pressure 132/106 H Pulse Oximetry 94 91 Oxygen Delivery Method Oxygen Flow Rate 01/07/25 23:00 01/07/25 23:05 01/07/25 23:15 Pulse Rate 158 H 157 H Respiratory Rate 22 27 H Blood Pressure 131/97 H 132/93 H 130/87 Pulse Oximetry 94 94 Oxygen Delivery Method Oxygen Flow Rate 01/07/25 23:27 01/07/25 23:48 Pulse Rate 150 H 95 H Respiratory Rate 21 Blood Pressure 130/87 138/96 H Pulse Oximetry 92 Oxygen Delivery Method Nasal Cannula Oxygen Flow Rate 2 <Kymberly Altamirano, DO - Last Filed: 01/08/25 02:52> Orders Ordered: Acetaminophen (Acetaminophen 325 Mg Tablet) 650 mg PO Q6H PRN PRN Reason: Fever/Mild Pain (1-3) Last Admin: 01/08/25 01:43 Dose: 650 mg Documented By: RADHA Apixaban (Apixaban 5 Mg Tablet) 5 mg PO BID JOYCE Last Admin: 01/08/25 09:07 Dose: 5 mg Documented By: BURTON Diltiazem HCl (Diltiazem Sr 60 Mg) 60 mg PO Q8H JOYCE Last Admin: 01/08/25 09:07 Dose: 60 mg Documented By: BURTON Amiodarone HCl/Dextrose (Nexterone) 360 mg in 200 mls @ 16.7 mls/hr IV CONT JOYCE; Protocol Stop: 01/08/25 18:44 Last Admin: 01/08/25 06:52 Dose: 16.7 mls/hr, 16.7 mls/hr Documented By: RADHA Amiodarone HCl/Dextrose (Nexterone) 180 mg in 100 mls @ 16.7 mls/hr IV CONT JOYCE; Protocol Stop: 01/09/25 00:45 Naloxone HCl (Naloxone 0.4 Mg/Ml Vial) 0.2 mg IV Q2MIN PRN PRN Reason: Opiate Reversal Ondansetron HCl (Ondansetron 4 Mg/2 Ml Inj) 4 mg IV NOW PRN PRN Reason: Nausea And Vomiting Ondansetron HCl (Ondansetron 4 Mg Odt) 4 mg SL NOW PRN PRN Reason: Nausea And Vomiting Sodium Chloride (Sodium Chloride 0.9% Flush) 10 ml IV PRN PRN PRN Reason: Flush Sodium Chloride (Sodium Chloride 0.9% Flush) 10 ml IV BID [facility] Last Admin: 01/08/25 09:07 Dose: 10 ml Documented By: BURTON Discontinued Medications Digoxin (Digoxin 500 Mcg/2 Ml Ampul) 500 mcg IV NOW ONE Stop: 01/07/25 23:15 Last Admin: 01/07/25 23:27 Dose: 500 mcg Documented By: VINICIO Diltiazem HCl (Diltiazem 25 Mg/5 Ml Sdv) 10 mg IV NOW ONE Stop: 01/07/25 17:37 Last Admin: 01/07/25 17:40 Dose: 10 mg Documented By: Furosemide (Furosemide 40 Mg/4 Ml Vial) 40 mg IV NOW ONE Stop: 01/07/25 18:11 Last Admin: 01/07/25 18:18 Dose: 40 mg Documented By: Diltiazem HCl 125 mg/ Sodium (Chloride) 125 mls @ 5 mls/hr IV TITRATE [facility]; Protocol Last Titration: 01/07/25 20:33 Dose: 0 mg/hr, 0 mls/hr Documented By: Titration: 01/07/25 19:15 Dose: 15 mg/hr, 15 mls/hr Documented By: Titration: 01/07/25 18:48 Dose: 10 mg/hr, 10 mls/hr Documented By: Admin: 01/07/25 18:23 Dose: 5 mg/hr, 5 mls/hr Documented By: Amiodarone HCl/Dextrose (Nexterone) 150 mg in 100 mls @ 600 mls/hr IV NOW ONE; Protocol Stop: 01/08/25 00:03 Last Infusion: 01/08/25 00:36 Dose: Infused Documented By: RLJoaquina Admin: 01/08/25 00:20 Dose: 600 mls/hr Documented By: VINICIO Amiodarone HCl/Dextrose (Nexterone) 360 mg in 200 mls @ 33.333 mls/hr IV NOW ONE; Protocol Stop: 01/08/25 05:54 Last Titration: 01/08/25 07:09 Dose: 0 mls/hr, 0 mls/hr Documented By: [facility] Admin: 01/08/25 01:16 Dose: 33.3 mls/hr, 33.3 mls/hr Documented By: RADHA Amiodarone HCl/Dextrose (Nexterone) 180 mg in 100 mls @ 16.7 mls/hr IV CONT JOYCE; Protocol Stop: 01/08/25 12:15 Last Admin: 01/08/25 07:26 Dose: Not Given Documented By: BURTON Metoprolol Tartrate (Metoprolol Tartrate 5 Mg/5 Ml Inj) 5 mg IV NOW ONE Stop: 01/07/25 19:45 Last Admin: 01/07/25 19:50 Dose: 5 mg Documented By: Metoprolol Tartrate (Metoprolol Tartrate 5 Mg/5 Ml Inj) 5 mg IV NOW ONE Stop: 01/07/25 20:31 Last Admin: 01/07/25 20:37 Dose: 5 mg Documented By: Metoprolol Tartrate (Metoprolol Tartrate 5 Mg/5 Ml Inj) 5 mg IV NOW ONE Stop: 01/07/25 23:06 Last Admin: 01/07/25 23:18 Dose: 5 mg Documented By: VINICIO Pantoprazole Sodium (Pantoprazole 40 Mg Vial) 80 mg IV NOW ONE Stop: 01/07/25 17:24 Last Admin: 01/07/25 17:41 Dose: 80 mg Documented By: Potassium Chloride (Potassium Chloride 20 Meq Tab) 40 meq PO NOW ONE Stop: 01/08/25 08:31 Last Admin: 01/08/25 09:07 Dose: 40 meq Documented By: BURTON Propofol (Propofol 200 Mg/20 Ml Vial) 130 mg 1 mg/kg (130 mg) IV NOW ONE Stop: 01/07/25 22:32 Last Admin: 01/07/25 22:56 Dose: 60 mg Documented By: VINICIO Vital Signs Vital signs: Vital Signs - 8 hr 01/07/25 18:50 01/07/25 18:50 01/07/25 18:56 Pulse Rate 173 H 156 H Respiratory Rate 47 H 32 H Blood Pressure 125/81 Pulse Oximetry 92 94 Oxygen Delivery Method Oxygen Flow Rate 01/07/25 18:56 01/07/25 19:00 01/07/25 19:01 Pulse Rate 156 H 152 H Respiratory Rate 36 H 33 H Blood Pressure 113/61 Pulse Oximetry 93 93 Oxygen Delivery Method Oxygen Flow Rate 01/07/25 19:01 01/07/25 19:05 01/07/25 19:05 Pulse Rate 158 H Respiratory Rate 34 H Blood Pressure 149/76 H 142/83 H Pulse Oximetry 94 Oxygen Delivery Method Nasal Cannula Oxygen Flow Rate 2 01/07/25 19:11 01/07/25 19:11 01/07/25 19:15 Pulse Rate 157 H Respiratory Rate 36 H Blood Pressure 126/94 H 120/101 H Pulse Oximetry 93 Oxygen Delivery Method Oxygen Flow Rate 01/07/25 19:15 01/07/25 19:25 01/07/25 19:25 Pulse Rate 154 H 151 H Respiratory Rate 30 H 37 H Blood Pressure 149/96 H Pulse Oximetry 93 94 95 Oxygen Delivery Method Nasal Cannula Oxygen Flow Rate 2 01/07/25 19:30 01/07/25 19:30 01/07/25 19:35 Pulse Rate 151 H Respiratory Rate 39 H Blood Pressure 120/78 139/82 Pulse Oximetry 93 Oxygen Delivery Method Oxygen Flow Rate 01/07/25 19:35 01/07/25 19:40 01/07/25 19:40 Pulse Rate 153 H 144 H Respiratory Rate 33 H 36 H Blood Pressure 142/85 H Pulse Oximetry 92 94 Oxygen Delivery Method Oxygen Flow Rate 01/07/25 19:46 01/07/25 19:46 01/07/25 19:50 Pulse Rate 149 H Respiratory Rate 26 H Blood Pressure 154/93 H 164/103 H Pulse Oximetry 94 Oxygen Delivery Method Oxygen Flow Rate 01/07/25 19:50 01/07/25 19:56 01/07/25 19:56 Pulse Rate 160 H 154 H Respiratory Rate 41 H 34 H Blood Pressure 154/95 H Pulse Oximetry 94 95 Oxygen Delivery Method Oxygen Flow Rate 01/07/25 20:00 01/07/25 20:00 01/07/25 20:05 Pulse Rate 133 H 131 H Respiratory Rate 28 H 11 L Blood Pressure 144/92 H Pulse Oximetry 95 96 Oxygen Delivery Method Nasal Cannula Oxygen Flow Rate 2 01/07/25 20:05 01/07/25 20:10 01/07/25 20:10 Pulse Rate 127 H Respiratory Rate 31 H Blood Pressure 124/78 140/91 H Pulse Oximetry 94 Oxygen Delivery Method Oxygen Flow Rate 01/07/25 20:15 01/07/25 20:15 01/07/25 20:20 Pulse Rate 140 H 140 H Respiratory Rate 38 H 35 H Blood Pressure 127/92 H Pulse Oximetry 94 93 Oxygen Delivery Method Nasal Cannula Oxygen Flow Rate 2 01/07/25 20:20 01/07/25 20:25 01/07/25 20:25 Pulse Rate 142 H Respiratory Rate 37 H Blood Pressure 144/95 H 129/103 H Pulse Oximetry 95 Oxygen Delivery Method Oxygen Flow Rate 01/07/25 20:30 01/07/25 20:30 01/07/25 20:35 Pulse Rate 133 H 145 H Respiratory Rate 36 H 44 H Blood Pressure 132/102 H Pulse Oximetry 94 93 Oxygen Delivery Method Oxygen Flow Rate 01/07/25 20:35 01/07/25 20:40 01/07/25 20:40 Pulse Rate 149 H Respiratory Rate 35 H Blood Pressure 134/95 H 143/87 H Pulse Oximetry 94 Oxygen Delivery Method Oxygen Flow Rate 01/07/25 20:45 01/07/25 20:45 01/07/25 20:50 Pulse Rate 144 H Respiratory Rate 36 H Blood Pressure 127/64 130/73 Pulse Oximetry 94 Oxygen Delivery Method Oxygen Flow Rate 01/07/25 20:50 01/07/25 20:55 01/07/25 21:00 Pulse Rate 137 H 136 H 142 H Respiratory Rate 34 H 37 H 32 H Blood Pressure 129/99 H 121/100 H Pulse Oximetry 92 92 92 Oxygen Delivery Method Nasal Cannula Oxygen Flow Rate 2 01/07/25 21:05 01/07/25 21:10 01/07/25 21:20 Pulse Rate 143 H 145 H 149 H Respiratory Rate 42 H 34 H 28 H Blood Pressure 129/97 H 135/87 Pulse Oximetry 91 93 91 Oxygen Delivery Method Oxygen Flow Rate 01/07/25 21:25 01/07/25 21:30 01/07/25 21:35 Pulse Rate 144 H 146 H 147 H Respiratory Rate 30 H 36 H 32 H Blood Pressure 121/94 H 102/87 Pulse Oximetry 90 L 90 L 91 Oxygen Delivery Method Oxygen Flow Rate 01/07/25 21:35 01/07/25 21:40 01/07/25 21:40 Pulse Rate 152 H Respiratory Rate 21 Blood Pressure 144/97 H 141/103 H Pulse Oximetry 90 L Oxygen Delivery Method Oxygen Flow Rate 01/07/25 21:45 01/07/25 21:45 01/07/25 21:49 Pulse Rate 152 H 146 H Respiratory Rate 29 H 30 H Blood Pressure 143/112 H Pulse Oximetry 92 94 Oxygen Delivery Method Oxygen Flow Rate 01/07/25 21:49 01/07/25 21:50 01/07/25 21:50 Pulse Rate 151 H Respiratory Rate 30 H Blood Pressure 146/108 H 143/108 H Pulse Oximetry 94 Oxygen Delivery Method Oxygen Flow Rate 01/07/25 21:55 01/07/25 21:55 01/07/25 22:00 Pulse Rate 147 H 150 H Respiratory Rate 35 H 30 H Blood Pressure 138/105 H Pulse Oximetry 94 92 Oxygen Delivery Method Oxygen Flow Rate 01/07/25 22:00 01/07/25 22:05 01/07/25 22:05 Pulse Rate 153 H Respiratory Rate 31 H Blood Pressure 145/108 H 157/96 H Pulse Oximetry 88 L Oxygen Delivery Method Oxygen Flow Rate 01/07/25 22:11 01/07/25 22:11 01/07/25 22:15 Pulse Rate 154 H 152 H Respiratory Rate 23 21 Blood Pressure 136/104 H Pulse Oximetry 92 92 Oxygen Delivery Method Oxygen Flow Rate 01/07/25 22:15 01/07/25 22:20 01/07/25 22:20 Pulse Rate 153 H Respiratory Rate 22 Blood Pressure 130/99 H 121/101 H Pulse Oximetry 93 Oxygen Delivery Method Oxygen Flow Rate 01/07/25 22:25 01/07/25 22:25 01/07/25 22:30 Pulse Rate 154 H 161 H Respiratory Rate 31 H 24 Blood Pressure 131/104 H Pulse Oximetry 91 92 Oxygen Delivery Method Oxygen Flow Rate 01/07/25 22:30 01/07/25 22:35 01/07/25 22:35 Pulse Rate 159 H Respiratory Rate 34 H Blood Pressure 137/101 H 125/101 H Pulse Oximetry 90 L Oxygen Delivery Method Oxygen Flow Rate 01/07/25 22:40 01/07/25 22:40 01/07/25 22:45 Pulse Rate 160 H 165 H Respiratory Rate 29 H 28 H Blood Pressure 133/109 H Pulse Oximetry 95 92 Oxygen Delivery Method Oxygen Flow Rate 01/07/25 22:45 01/07/25 22:50 01/07/25 22:50 Pulse Rate 163 H Respiratory Rate 32 H Blood Pressure 126/110 H 131/115 H Pulse Oximetry 91 Oxygen Delivery Method Oxygen Flow Rate 01/07/25 22:55 01/07/25 22:55 01/07/25 23:00 Pulse Rate 169 H 166 H Respiratory Rate 38 H 33 H Blood Pressure 132/106 H Pulse Oximetry 94 91 Oxygen Delivery Method Oxygen Flow Rate 01/07/25 23:00 01/07/25 23:05 01/07/25 23:15 Pulse Rate 158 H 157 H Respiratory Rate 22 27 H Blood Pressure 131/97 H 132/93 H 130/87 Pulse Oximetry 94 94 Oxygen Delivery Method Oxygen Flow Rate 01/07/25 23:27 01/07/25 23:48 Pulse Rate 150 H 95 H Respiratory Rate 21 Blood Pressure 130/87 138/96 H Pulse Oximetry 92 Oxygen Delivery Method Nasal Cannula Oxygen Flow Rate 2 MDM - SOB/Dyspnea <Munira Torrez, DO - Last Filed: 01/08/25 09:32> Lab Data 01/07/25 17:30 01/08/25 04:20 Labs: Lab Results 01/07/25 01/07/25 Range/Units 17:30 17:30 WBC 8.5 (4.5-11.0) X10^3/uL RBC 4.81 (4.5-5.9) X10^6/uL Hgb 13.4 L (13.5-17.5) g/dL Hct 40.9 L (41-53) % MCV 85.0 (80-100) fL MCH 27.9 (26-34) PG MCHC 32.8 (30-36) % RDW 13.3 (11.6-14.8) % Plt Count 376 (150-400) X10^3/uL Neut % (Auto) 66.1 (50-75) % Lymph % (Auto) 20.9 L (25-40) % Grady % (Auto) 10.0 (3-14) % Eos % (Auto) 1.9 L (2-4) % Baso % (Auto) 1.1 (0-2) % Neut # (Auto) 5600 (5942-1560) /uL Lymph # (Auto) 1800 (9244-2732) /uL Grady # (Auto) 800 (0-900) /uL Eos # (Auto) 200 (0-450) /uL Baso # (Auto) 100 (0-100) /uL PT 18.4 H (9.4-12.5) SECONDS INR 1.6 H (0.9-1.3) APTT 42 H (25.1-36.5) SECONDS Sodium 144 (137-145) mmol/L Potassium 3.6 (3.4-5.1) mmol/L Chloride 108 H (98-107) mmol/L Carbon Dioxide 23 (22-32) mmol/L BUN 10 (9-20) mg/dL Creatinine 1.43 H (0.66-1.25) mg/dL Estimated GFR 59 L (>60) mL/min BUN/Creatinine Ratio 7.0 (6-22) Glucose 102 H (70-100) mg/dL Lactate 1.5 (0.7-2.1) mmol/L Calcium 9.0 (8.4-10.2) mg/dL Magnesium 1.8 (1.6-2.3) mg/dL Total Bilirubin 1.2 (0.2-1.3) mg/dL AST 29 (17-59) IU/L ALT 36 (<50) IU/L Alkaline Phosphatase 154 H (38-126) U/L Total Creatine Kinase 138 (55-170) U/L Troponin I Cancelled < 0.012 NT-Pro-B Natriuret Pep 2930 H (<125) pg/mL Total Protein 7.5 (6.3-8.2) g/dL Albumin 4.1 (3.5-5.0) g/dL Globulin 3.4 (1.7-4.1) g/dL Albumin/Globulin Ratio 1.2 (1.0-2.8) Lipase 42 (23-300) U/L Blood Type O Positive Antibody Screen Negative ECG Data Attestation: I personally reviewed and interpreted this ECG as follows: Prior ECG tracings: available for review Interpretation: AFib RVR, rate of 147 QRS is 76 QTC of 507, no acute ST elevation or depression nonspecific change. Patient has prior from 11/04/2024 which appears similar. [facility] Narrative Medical decision making narrative: EKG shows AFib with RVR Labs Chest x-ray Patient had recently diagnosed AFib and October has been on Eliquis. Had echo on 11/05/2024, EF is 55-60% aortic valve slightly calcified mild mitral annular calcification mild mitral regurg. No obvious focal wall motion abnormalities but poor endocardial definition reduced sensitivity for detection. No pericardial effusion. Patient signed out to Dr. Altamirano, patient was started with diltiazem and diltiazem drip as well as 40 mg of Lasix. Workup is currently pending. Dr. Altamirano-patient signed out to me by Dr. Torrez I have seen evaluated patient myself. Recently diagnosed with atrial fibrillation back in October. Been on diltiazem and Eliquis since then has not missed a dose. However his watch he has been telling him that he has had episodes of atrial fibrillation every day. Presents today AFib with RVR and increasing shortness of breath. He does appear to have some mild congestive heart failure. Chest x-ray does show cardiomegaly with small pleural effusions and from an intestinal markings. Concerning for pulmonary edema and congestive heart failure. This is consistent clinically and BNP is elevated at 2930 with a negative troponin. Patient initially given a bolus of 10 mg diltiazem she did slowly respond to placed on diltiazem drip and heart rate remained in the 140s. Diltiazem was stopped given 5 mg of Lopressor which he did respond to better however heart rate still fast 2100 Dr. Ray cardiology updated patient's symptoms test results reports that patient is definitely a candidate for cardioversion and can follow-up with Cardiology as scheduled on Tuesday. No need to change medication Attempted cardioversion twice he failed to cardiovert. Given another dose of Lopressor, He was urinated 1500 cc out with Lasix no longer requiring oxygen. Dr. Medina, updated on symptoms test results request did load and Lopressor is still tachycardic we will need to go to ICU Patient was given digoxin and Lopressor remains tachycardic heart rate is slowing into the 140s Dr. Medina, updated on patient's symptoms test results request amiodarone drip and ICU acmission Patient having persistent AFib with RVR despite many medications in cardioversion attempt. Ultimately placed on an amiodarone drip. Blood work reviewed no leukocytosis no anemia hemoglobin stable at 13.4 hematocrit 40.9 INR 1.6 PTT 42 Electrolytes within normal limits creatinine 1.43 we will postpone O2 Troponin negative BNP 2830 <Kymberly Altamirano DO - Last Filed: 01/08/25 02:52> Lab Data Labs: Lab Results 01/07/25 01/07/25 Range/Units 17:30 17:30 WBC 8.5 (4.5-11.0) X10^3/uL RBC 4.81 (4.5-5.9) X10^6/uL Hgb 13.4 L (13.5-17.5) g/dL Hct 40.9 L (41-53) % MCV 85.0 (80-100) fL MCH 27.9 (26-34) PG MCHC 32.8 (30-36) % RDW 13.3 (11.6-14.8) % Plt Count 376 (150-400) X10^3/uL Neut % (Auto) 66.1 (50-75) % Lymph % (Auto) 20.9 L (25-40) % Grady % (Auto) 10.0 (3-14) % Eos % (Auto) 1.9 L (2-4) % Baso % (Auto) 1.1 (0-2) % Neut # (Auto) 5600 (2647-6792) /uL Lymph # (Auto) 1800 (0488-2631) /uL Grady # (Auto) 800 (0-900) /uL Eos # (Auto) 200 (0-450) /uL Baso # (Auto) 100 (0-100) /uL PT 18.4 H (9.4-12.5) SECONDS INR 1.6 H (0.9-1.3) APTT 42 H (25.1-36.5) SECONDS Sodium 144 (137-145) mmol/L Potassium 3.6 (3.4-5.1) mmol/L Chloride 108 H (98-107) mmol/L Carbon Dioxide 23 (22-32) mmol/L BUN 10 (9-20) mg/dL Creatinine 1.43 H (0.66-1.25) mg/dL Estimated GFR 59 L (>60) mL/min BUN/Creatinine Ratio 7.0 (6-22) Glucose 102 H (70-100) mg/dL Lactate 1.5 (0.7-2.1) mmol/L Calcium 9.0 (8.4-10.2) mg/dL Magnesium 1.8 (1.6-2.3) mg/dL Total Bilirubin 1.2 (0.2-1.3) mg/dL AST 29 (17-59) IU/L ALT 36 (<50) IU/L Alkaline Phosphatase 154 H (38-126) U/L Total Creatine Kinase 138 (55-170) U/L Troponin I Cancelled < 0.012 NT-Pro-B Natriuret Pep 2930 H (<125) pg/mL Total Protein 7.5 (6.3-8.2) g/dL Albumin 4.1 (3.5-5.0) g/dL Globulin 3.4 (1.7-4.1) g/dL Albumin/Globulin Ratio 1.2 (1.0-2.8) Lipase 42 (23-300) U/L Blood Type O Positive Antibody Screen Negative Imaging Data Chest x-ray: Radiologist's Impression: PROCEDURE: XR CHEST 1V INDICATIONS: Shortness of breath TECHNIQUE: One view of the chest was acquired. COMPARISON: [facility], , XR CHEST 1V, 11/04/2024, 21:14. FINDINGS: Surgical changes and devices: None. Lungs and pleura: Small bilateral pleural effusions. Prominent interstitial markings with a lower lung field predominance. Mediastinum: Mediastinal contours appear normal. Heart size is enlarged. Bones and chest wall: No suspicious bony lesions. Overlying soft tissues appear unremarkable. IMPRESSION: Cardiomegaly with small effusions and prominent interstitial markings concerning for pulmonary edema/congestive heart failure. Recommend clinical correlation. Dictated by: Mt Rosario M.D. on 01/07/2025 at 18:27 MDM Narrative Medical decision making narrative: EKG shows AFib with RVR Labs Chest x-ray Patient had recently diagnosed AFib and October has been on Eliquis. Had echo on 11/05/2024, EF is 55-60% aortic valve slightly calcified mild mitral annular calcification mild mitral regurg. No obvious focal wall motion abnormalities but poor endocardial definition reduced sensitivity for detection. No pericardial effusion. Patient signed out to Dr. Evelia Altamirano-patient signed out to me by Dr. Torrez I have seen evaluated patient myself. Recently diagnosed with atrial fibrillation back in October. Been on diltiazem and Eliquis since then has not missed a dose. However his watch he has been telling him that he has had episodes of atrial fibrillation every day. Presents today AFib with RVR and increasing shortness of breath. He does appear to have some mild congestive heart failure. Chest x-ray does show cardiomegaly with small pleural effusions and from an intestinal markings. Concerning for pulmonary edema and congestive heart failure. This is consistent clinically and BNP is elevated at 2930 with a negative troponin. Patient initially given a bolus of 10 mg diltiazem she did slowly respond to placed on diltiazem drip and heart rate remained in the 140s. Diltiazem was stopped given 5 mg of Lopressor which he did respond to better however heart rate still fast 2100 Dr. Ray cardiology updated patient's symptoms test results reports that patient is definitely a candidate for cardioversion and can follow-up with Cardiology as scheduled on Tuesday. No need to change medication Attempted cardioversion twice he failed to cardiovert. Given another dose of Lopressor, He was urinated 1500 cc out with Lasix no longer requiring oxygen. Dr. Medina, updated on symptoms test results request did load and Lopressor is still tachycardic we will need to go to ICU Patient was given digoxin and Lopressor remains tachycardic heart rate is slowing into the 140s Dr. Medina, updated on patient's symptoms test results request amiodarone drip and ICU acmission Patient having persistent AFib with RVR despite many medications in cardioversion attempt. Ultimately placed on an amiodarone drip. Blood work reviewed no leukocytosis no anemia hemoglobin stable at 13.4 hematocrit 40.9 INR 1.6 PTT 42 Electrolytes within normal limits creatinine 1.43 we will postpone O2 Troponin negative BNP 2830 Critical Care Time <Kymberly Altamirano DO - Last Filed: 01/08/25 02:52> Critical Care Time Critical Care Time: Yes Total Critical Care Time: 32 Attestation: The high probability of a clinically significant, sudden or life threatening deterioration of the [cardiovascular] system(s) required my full and direct attention, intervention and personal management. The aggregate critical care time was 32 minutes. This time is in addition to time spent performing reported procedures but includes the following: [x] Data Review and interpretation [x] Patient assessment and monitoring of vital signs [x] Documentation [x] Medication orders and management Discharge Plan Departure Patient Disposition: Admitted As Inpatient Clinical Impression: Atrial fibrillation with rapid ventricular response Admit Date/Time: 01/07/25 23:55 Admit Provider: Parker Negron
[2025-01-07] MEDS: dilTIAZem 25 MG/5 ML SDV 10 MG IV (17:40)
[2025-01-07] MEDS: PANTOPRAZOLE 40 MG VIAL 80 MG IV (17:41)
[2025-01-07 17:48] LABS: Add Manual Diff / Slide Review NO; Basophils Absolute Auto 100 /uL (0-100); Basophils Percent Auto 1.1 % (0-2); Eosinophils Absolute Auto 200 /uL (0-450); Eosinophils Percent Auto 1.9 % (2-4); Hematocrit 40.9 % (41-53); Hemoglobin 13.4 g/dL (13.5-17.5); Lymphocytes Absolute Auto 1800 /uL (1100-4500); Lymphocytes Percent Auto 20.9 % (25-40); Mean Corpuscular HGB Conc 32.8 % (30-36); Mean Corpuscular Hemoglobin 27.9 PG (26-34); Monocytes Absolute Auto 800 /uL (0-900); Neutrophils Absolute Auto 5600 /uL (1500-7000); Neutrophils Percent Auto 66.1 % (50-75); Platelet Count 376 X10^3/uL (150-400); Red Blood Cell Count 4.81 X10^6/uL (4.5-5.9); Red Cell Distribution Width 13.3 % (11.6-14.8); White Blood Cell Count 8.5 X10^3/uL (4.5-11.0)
[2025-01-07 17:58] LABS: PTT Partial Thromboplastin Tim 42 SECONDS (25.1-36.5)
[2025-01-07 18:00] LABS: Creatine Kinase 138 U/L (55-170); Lipase 42 U/L (23-300); Magnesium 1.8 mg/dL (1.6-2.3)
[2025-01-07 18:02] LABS: Alanine Aminotransferase 36 IU/L (<50); Albumin 4.1 g/dL (3.5-5.0); Albumin Globulin Ratio 1.2 (1.0-2.8); Alkaline Phosphatase 154 U/L (38-126); Aspartate Aminotransferase 29 IU/L (17-59); Bilirubin Total 1.2 mg/dL (0.2-1.3); Blood Urea Nitrogen 10 mg/dL (9-20); Carbon Dioxide 23 mmol/L (22-32); Chloride 108 mmol/L (98-107); Estimated Glomerular Filt Rate 59 mL/min (>60); Globulin 3.4 g/dL (1.7-4.1); Glucose 102 mg/dL (70-100); HEMOLYSIS < 15 (0-50); Lactate (Lactic Acid) 1.5 mmol/L (0.7-2.1); Potassium 3.6 mmol/L (3.4-5.1); Sodium 144 mmol/L (137-145); Total Protein 7.5 g/dL (6.3-8.2)
[2025-01-07 18:03] LABS: INR 1.6 (0.9-1.3); Prothrombin Time 18.4 SECONDS (9.4-12.5)
[2025-01-07 18:10] LABS: NT-proBNP (BNP-Adult 18+) 2930 pg/mL (<125)
[2025-01-07 18:13] LABS: Troponin I < 0.012 ng/mL (0.01-0.034)
[2025-01-07] MEDS: FUROSEMIDE 40 MG/4 ML VIAL IV (18:18)
[2025-01-07] MEDS: dilTIAZem 125 MG in SODIUM CHLORIDE 0.9% 100 ML IV (18:23)
--- NOTE | 2025-01-07 19:37 | PC.NURSE ---
Titrated pt to max dose of diltiazem at [address] Altamirano notified. Verbal order received for 5 mg Lopressor IV.
[2025-01-07] MEDS: METOPROLOL TARTRATE 5 MG/5 ML INJ IV ×3 (19:50→23:18)
--- NOTE | 2025-01-07 20:36 | PC.NURSE ---
Pt HR remains 145. Dr Altamirano notified. New orders received.
[2025-01-07] MEDS: propofoL 200 MG/20 ML VIAL 130 MG IV (22:56)
[2025-01-07] MEDS: DIGOXIN 500 MCG/2 ML AMPUL IV (23:27)
[2025-01-08] VITALS (44 sets, daily range): BP systolic 130–178; BP diastolic 85–127; PULSE 70–157; RESP 20–39; TEMP 36.1–36.3; O2SAT 87–97; BMI 42.1
[2025-01-08 00:19] LABS: Appearance Urine UA CLEAR; Bilirubin Urine UA NEGATIVE (NEGATIVE); Color Urine UA YELLOW; Glucose Urine UA NEGATIVE (Negative); Ketones Urine UA 1+ (NEGATIVE); Leukocyte Esterase Urine UA NEGATIVE (NEGATIVE); Nitrite Urine UA NEGATIVE (Negative); Occult Blood Urine UA NEGATIVE (Negative); Protein Urine UA NEGATIVE (Negative); Specific Gravity Urine UA 1.015 (1.000-1.035); Urobilinogen Urine UA 0.2 E.U./dL (0.2); pH Urine UA 5.5 (4.5-8.0)
--- NOTE | 2025-01-08 00:19 | PM.HP.1 ---
History of Present Illness History of Present Illness Date Patient Seen: 01/08/25 Chief complaint: SOB, poss fluid on lungs hx Afib swelling LE Narrative: 54-year-old male with a history of hypertension, diagnosed with new onset atrial fibrillation in October 2024 and was briefly hospitalized at [place]. He was doing well initially, on Cardizem 180 mg daily and Eliquis 5 mg bid, w/o palpitations, chest pain, GI bleed. Then gradually he developed SOB and leg swelling. Presented to ED fluid overloaded, with rapid A-fib ~ 150. Failed Cardizem drip, multiple IV BB, 2 cardioversions, digoxin 0.5, started on Amiodarone drip and Placed in observation to ICU. Without evidence of ACS on admission. [facility] Medical History HTN (hypertension) Social History household members: spouse and children Smoking Status: Never smoker Meds Home Medications and Allergies Home Medications Medication Instructions Recorded Confirmed Type omeprazole 20 mg capsule,delayed 20 mg PO DAILY 11/05/24 01/08/25 History release apixaban 5 mg tablet (Eliquis) 5 mg PO BID 90 days #180 tabs 11/06/24 01/08/25 Rx diltiazem HCl 180 mg 180 mg PO 0600 01/08/25 01/08/25 History capsule,extended release 24 hr (Cardizem CD) Allergies Allergy/AdvReac Type Severity Reaction Status Date / Time aspirin Allergy Severe Swelling Verified 11/05/24 17:23 of Lip/Tongue/Throat [place] And [employer]ivatives Allergy Intermediate ITCHING Verified 11/05/24 09:20 Review of Systems Review of Systems Narrative: General - progressive generalized weakness CVS - SOB, palpitations GI - w/o melena, bloody stool. Positive for heartburn - takes omeprazole. Psych - not anxious Exam Vital Signs (past 8 hours): - 01/07/25 17:13 01/07/25 17:35 01/07/25 17:35 Temperature 97.3 F L Pulse Rate 130 H 77 Respiratory Rate 18 Blood Pressure 154/100 H 147/104 H Pulse Oximetry 91 95 Oxygen Delivery Method Room Air Oxygen Flow Rate 01/07/25 17:40 01/07/25 18:00 01/07/25 18:23 Temperature Pulse Rate 175 H 156 H 150 H Respiratory Rate 44 H Blood Pressure 147/108 H 147/100 H Pulse Oximetry 95 Oxygen Delivery Method Oxygen Flow Rate 01/07/25 18:28 01/07/25 18:28 01/07/25 18:30 Temperature Pulse Rate 157 H 150 H Respiratory Rate 38 H 32 H Blood Pressure 149/103 H Pulse Oximetry 93 93 Oxygen Delivery Method Nasal Cannula Oxygen Flow Rate 2 01/07/25 18:30 01/07/25 18:40 01/07/25 18:40 Temperature Pulse Rate 150 H Respiratory Rate 37 H Blood Pressure 122/93 H 131/100 H Pulse Oximetry 94 Oxygen Delivery Method Oxygen Flow Rate 01/07/25 18:45 01/07/25 18:45 01/07/25 18:50 Temperature Pulse Rate 155 H 173 H Respiratory Rate 38 H 47 H Blood Pressure 153/99 H Pulse Oximetry 94 92 Oxygen Delivery Method Oxygen Flow Rate 01/07/25 18:50 01/07/25 18:56 01/07/25 18:56 Temperature Pulse Rate 156 H Respiratory Rate 32 H Blood Pressure 125/81 113/61 Pulse Oximetry 94 Oxygen Delivery Method Oxygen Flow Rate 01/07/25 19:00 01/07/25 19:01 01/07/25 19:01 Temperature Pulse Rate 156 H 152 H Respiratory Rate 36 H 33 H Blood Pressure 149/76 H Pulse Oximetry 93 93 Oxygen Delivery Method Oxygen Flow Rate 01/07/25 19:05 01/07/25 19:05 01/07/25 19:11 Temperature Pulse Rate 158 H 157 H Respiratory Rate 34 H 36 H Blood Pressure 142/83 H Pulse Oximetry 94 93 Oxygen Delivery Method Nasal Cannula Oxygen Flow Rate 2 01/07/25 19:11 01/07/25 19:15 01/07/25 19:15 Temperature Pulse Rate 154 H Respiratory Rate 30 H Blood Pressure 126/94 H 120/101 H Pulse Oximetry 93 Oxygen Delivery Method Oxygen Flow Rate 01/07/25 19:25 01/07/25 19:25 01/07/25 19:30 Temperature Pulse Rate 151 H 151 H Respiratory Rate 37 H 39 H Blood Pressure 149/96 H Pulse Oximetry 94 95 93 Oxygen Delivery Method Nasal Cannula Oxygen Flow Rate 2 01/07/25 19:30 01/07/25 19:35 01/07/25 19:35 Temperature Pulse Rate 153 H Respiratory Rate 33 H Blood Pressure 120/78 139/82 Pulse Oximetry 92 Oxygen Delivery Method Oxygen Flow Rate 01/07/25 19:40 01/07/25 19:40 01/07/25 19:46 Temperature Pulse Rate 144 H 149 H Respiratory Rate 36 H 26 H Blood Pressure 142/85 H Pulse Oximetry 94 94 Oxygen Delivery Method Oxygen Flow Rate 01/07/25 19:46 01/07/25 19:50 01/07/25 19:50 Temperature Pulse Rate 160 H Respiratory Rate 41 H Blood Pressure 154/93 H 164/103 H Pulse Oximetry 94 Oxygen Delivery Method Oxygen Flow Rate 01/07/25 19:56 01/07/25 19:56 01/07/25 20:00 Temperature Pulse Rate 154 H 133 H Respiratory Rate 34 H 28 H Blood Pressure 154/95 H Pulse Oximetry 95 95 Oxygen Delivery Method Oxygen Flow Rate 01/07/25 20:00 01/07/25 20:05 01/07/25 20:05 Temperature Pulse Rate 131 H Respiratory Rate 11 L Blood Pressure 144/92 H 124/78 Pulse Oximetry 96 Oxygen Delivery Method Nasal Cannula Oxygen Flow Rate 2 01/07/25 20:10 01/07/25 20:10 01/07/25 20:15 Temperature Pulse Rate 127 H Respiratory Rate 31 H Blood Pressure 140/91 H 127/92 H Pulse Oximetry 94 Oxygen Delivery Method Oxygen Flow Rate 01/07/25 20:15 01/07/25 20:20 01/07/25 20:20 Temperature Pulse Rate 140 H 140 H Respiratory Rate 38 H 35 H Blood Pressure 144/95 H Pulse Oximetry 94 93 Oxygen Delivery Method Nasal Cannula Oxygen Flow Rate 2 01/07/25 20:25 01/07/25 20:25 01/07/25 20:30 Temperature Pulse Rate 142 H 133 H Respiratory Rate 37 H 36 H Blood Pressure 129/103 H Pulse Oximetry 95 94 Oxygen Delivery Method Oxygen Flow Rate 01/07/25 20:30 01/07/25 20:35 01/07/25 20:35 Temperature Pulse Rate 145 H Respiratory Rate 44 H Blood Pressure 132/102 H 134/95 H Pulse Oximetry 93 Oxygen Delivery Method Oxygen Flow Rate 01/07/25 20:40 01/07/25 20:40 01/07/25 20:45 Temperature Pulse Rate 149 H Respiratory Rate 35 H Blood Pressure 143/87 H 127/64 Pulse Oximetry 94 Oxygen Delivery Method Oxygen Flow Rate 01/07/25 20:45 01/07/25 20:50 01/07/25 20:50 Temperature Pulse Rate 144 H 137 H Respiratory Rate 36 H 34 H Blood Pressure 130/73 Pulse Oximetry 94 92 Oxygen Delivery Method Nasal Cannula Oxygen Flow Rate 2 01/07/25 20:55 01/07/25 21:00 01/07/25 21:05 Temperature Pulse Rate 136 H 142 H 143 H Respiratory Rate 37 H 32 H 42 H Blood Pressure 129/99 H 121/100 H 129/97 H Pulse Oximetry 92 92 91 Oxygen Delivery Method Oxygen Flow Rate 01/07/25 21:10 01/07/25 21:20 01/07/25 21:25 Temperature Pulse Rate 145 H 149 H 144 H Respiratory Rate 34 H 28 H 30 H Blood Pressure 135/87 121/94 H Pulse Oximetry 93 91 90 L Oxygen Delivery Method Oxygen Flow Rate 01/07/25 21:30 01/07/25 21:35 01/07/25 21:35 Temperature Pulse Rate 146 H 147 H Respiratory Rate 36 H 32 H Blood Pressure 102/87 144/97 H Pulse Oximetry 90 L 91 Oxygen Delivery Method Oxygen Flow Rate 01/07/25 21:40 01/07/25 21:40 01/07/25 21:45 Temperature Pulse Rate 152 H 152 H Respiratory Rate 21 29 H Blood Pressure 141/103 H Pulse Oximetry 90 L 92 Oxygen Delivery Method Oxygen Flow Rate 01/07/25 21:45 01/07/25 21:49 01/07/25 21:49 Temperature Pulse Rate 146 H Respiratory Rate 30 H Blood Pressure 143/112 H 146/108 H Pulse Oximetry 94 Oxygen Delivery Method Oxygen Flow Rate 01/07/25 21:50 01/07/25 21:50 01/07/25 21:55 Temperature Pulse Rate 151 H 147 H Respiratory Rate 30 H 35 H Blood Pressure 143/108 H Pulse Oximetry 94 94 Oxygen Delivery Method Oxygen Flow Rate 01/07/25 21:55 01/07/25 22:00 01/07/25 22:00 Temperature Pulse Rate 150 H Respiratory Rate 30 H Blood Pressure 138/105 H 145/108 H Pulse Oximetry 92 Oxygen Delivery Method Oxygen Flow Rate 01/07/25 22:05 01/07/25 22:05 01/07/25 22:11 Temperature Pulse Rate 153 H 154 H Respiratory Rate 31 H 23 Blood Pressure 157/96 H Pulse Oximetry 88 L 92 Oxygen Delivery Method Oxygen Flow Rate 01/07/25 22:11 01/07/25 22:15 01/07/25 22:15 Temperature Pulse Rate 152 H Respiratory Rate 21 Blood Pressure 136/104 H 130/99 H Pulse Oximetry 92 Oxygen Delivery Method Oxygen Flow Rate 01/07/25 22:20 01/07/25 22:20 01/07/25 22:25 Temperature Pulse Rate 153 H 154 H Respiratory Rate 22 31 H Blood Pressure 121/101 H Pulse Oximetry 93 91 Oxygen Delivery Method Oxygen Flow Rate 01/07/25 22:25 01/07/25 22:30 01/07/25 22:30 Temperature Pulse Rate 161 H Respiratory Rate 24 Blood Pressure 131/104 H 137/101 H Pulse Oximetry 92 Oxygen Delivery Method Oxygen Flow Rate 01/07/25 22:35 01/07/25 22:35 01/07/25 22:40 Temperature Pulse Rate 159 H Respiratory Rate 34 H Blood Pressure 125/101 H 133/109 H Pulse Oximetry 90 L Oxygen Delivery Method Oxygen Flow Rate 01/07/25 22:40 01/07/25 22:45 01/07/25 22:45 Temperature Pulse Rate 160 H 165 H Respiratory Rate 29 H 28 H Blood Pressure 126/110 H Pulse Oximetry 95 92 Oxygen Delivery Method Oxygen Flow Rate 01/07/25 22:50 01/07/25 22:50 01/07/25 22:55 Temperature Pulse Rate 163 H Respiratory Rate 32 H Blood Pressure 131/115 H 132/106 H Pulse Oximetry 91 Oxygen Delivery Method Oxygen Flow Rate 01/07/25 22:55 01/07/25 23:00 01/07/25 23:00 Temperature Pulse Rate 169 H 166 H Respiratory Rate 38 H 33 H Blood Pressure 131/97 H Pulse Oximetry 94 91 Oxygen Delivery Method Oxygen Flow Rate 01/07/25 23:05 01/07/25 23:15 01/07/25 23:27 Temperature Pulse Rate 158 H 157 H 150 H Respiratory Rate 22 27 H Blood Pressure 132/93 H 130/87 130/87 Pulse Oximetry 94 94 Oxygen Delivery Method Oxygen Flow Rate 01/07/25 23:48 Temperature Pulse Rate 95 H Respiratory Rate 21 Blood Pressure 138/96 H Pulse Oximetry 92 Oxygen Delivery Method Nasal Cannula Oxygen Flow Rate 2 Oxygen Delivery Method Nasal Cannula Oxygen Flow Rate 2 Narrative Exam Narrative: General - in no distress CVS - tachyarrhythmic RS - b/l rales GI - not distended Ext - b/l 1 + edema Neuro - intact Objective ECG Impression: Atrial fibrilation 147 Imaging Chest x-ray: Radiologist's impression: Cardiomegaly with small effusions and prominent interstitial markings concerning for pulmonary edema/congestive heart failure. Recommend clinical correlation. Labs 01/07/25 17:30 01/08/25 04:20 Labs: Laboratory Results - last 24 hr 01/07/25 01/07/25 17:30 17:30 WBC 8.5 RBC 4.81 Hgb 13.4 L Hct 40.9 L MCV 85.0 MCH 27.9 MCHC 32.8 RDW 13.3 Plt Count 376 Neut % (Auto) 66.1 Lymph % (Auto) 20.9 L [place] % (Auto) 10.0 Eos % (Auto) 1.9 L Baso % (Auto) 1.1 Neut # (Auto) 5600 Lymph # (Auto) 1800 [place] # (Auto) 800 Eos # (Auto) 200 Baso # (Auto) 100 PT 18.4 H INR 1.6 H APTT 42 H Sodium 144 Potassium 3.6 Chloride 108 H Carbon Dioxide 23 BUN 10 Creatinine 1.43 H Estimated GFR 59 L BUN/Creatinine Ratio 7.0 Glucose 102 H Lactate 1.5 Calcium 9.0 Magnesium 1.8 Total Bilirubin 1.2 AST 29 ALT 36 Alkaline Phosphatase 154 H Total Creatine Kinase 138 Troponin I Cancelled < 0.012 NT-Pro-B Natriuret Pep 2930 H Total Protein 7.5 Albumin 4.1 Globulin 3.4 Albumin/Globulin Ratio 1.2 Lipase 42 Blood Type O Positive Antibody Screen Negative Assessment & Plan Assessment and plan (1) Atrial fibrillation with rapid ventricular response: Status: Acute (2) Acute CHF: Qualifiers: Heart failure type: unspecified Qualified Code(s): I50.9 - Heart failure, unspecified Status: Acute (3) HTN (hypertension): Qualifiers: Hypertension type: primary hypertension Qualified Code(s): I10 - Essential (primary) hypertension Status: Acute (4) GERD (gastroesophageal reflux disease): Problem details: Intermittent / Pt takes Omeprazole at home . No Dysphagia, No h/o PUD Qualifiers: Esophagitis presence: esophagitis presence not specified Qualified Code(s): K21.9 - Gastro-esophageal reflux disease without esophagitis Status: Acute Assessment & Plan narrative: Atrial fibrilation with rapid ventricular response - amiodarone drip - telemetry monitoring - w/o evidence of ACS - Eliquis Acute CHF - echocardiogram when less tachyarrhythmic - diuresed - Is and Os - monitored electrolytes GERD - PPI Patient consented to a real time, audio-video telemedicine visit with electronic stethoscope and RN assisting during the exam. Patient located at [place], [place]. Provider located in [place]. Time-Based Coding :: [TOTAL MINUTES] spent with patient and on the chart (including review of chart, obtaining history, exam, reviewing outside data, placing orders, documenting exam and treatment plan, and counseling patient) on [DATE].
[2025-01-08] MEDS: AMIODARONE 150 MG/100 ML PIGGYBACK 600 MG IV (00:20)
[2025-01-08 00:21] LABS: Bacteria Urine None Seen; Culture Indicated Urine Cult Not Indicated; RBC Urine None Seen (0-5/HPF); Squamous Epithelial Cell Urine None Seen (0-5/HPF); Urine Volume 10mL (spun); WBC Urine None Seen (0-5/HPF)
[2025-01-08] MEDS: AMIODARONE 360 MG/200 ML PIGGYBACK 33.3 MG IV (01:16)
[2025-01-08] MEDS: ACETAMINOPHEN 325 MG TABLET 650 MG PO (01:43)
[2025-01-08 02:49] LABS: MRSA (Nasal) PCR NOT DETECTED (Not Detect)
[2025-01-08 05:10] LABS: BUN Creatinine Ratio 8.6 (6-22); Blood Urea Nitrogen 12 mg/dL (9-20); Calcium 8.7 mg/dL (8.4-10.2); Carbon Dioxide 24 mmol/L (22-32); Chloride 106 mmol/L (98-107); Estimated Glomerular Filt Rate > 60 mL/min (>60); Glucose 155 mg/dL (70-100); HEMOLYSIS < 15 (0-50); Magnesium 1.8 mg/dL (1.6-2.3); Potassium 3.5 mmol/L (3.4-5.1); Sodium 140 mmol/L (137-145)
[2025-01-08] MEDS: AMIODARONE 360 MG/200 ML PIGGYBACK 16.7 MG IV (06:52)
--- NOTE | 2025-01-08 07:24 | PC.NURSE ---
Admit/Night Note-Patient brought to ICU room 231 at 0100. A/Ox4, able to ambulate from stretcher to bed with mild shortness of breath.> 93% RA initially, desatted to 88% when Cpap placed around 0300, requiring 2L O2 bleed-in. A-fib 130s-150s upon arrival, amiodarone started at 33.3ml/hr (Bolus dose given in ED) Hr 120s by am. Tylenol given for headache and 3-5/10 pressure to Rt chest when coughing.
--- NOTE | 2025-01-08 08:24 | DI.ECHO.S_ITS ---
[facility] : : [address] : : [address] : : [id number] : : Phone: [phone] Echocardiogram Report + + :Name: TIANNA MUSE Study Date: 01/08/2025 Height: 67 in : :Hospital ReadingLocation: Weight: 268 lb : : Gender: Male BSA: 2.3 m2 : :: 1970 Age: 54 yrs BP: 149/89 mmHg: :Reason For Study: ATRIAL FIBRILLATION, PLEURAL EFFUSIONS : :Ordering Physician: EFREN, : :KRISTY GOODWIN Performed By: Rita Caicedo : :Referring: KRISTY SCHWARTZ : + + Interpretation Summary The left ventricle is normal in size and wall thickness. Left ventricular ejection fraction is estimated to be 25 +/- 5%. Left ventricular function has significantly worsened compared to the previous exam. There is a moderately large left-sided pleural effusion. Procedure: A two-dimensional transthoracic echocardiogram with color flow and Doppler was performed in limited views only to assess atrial fibrillation and pleural effusion.. The study quality was technically limited. The study quality was technically difficult. Comparison is made with the echocardiogram of 11/05/2024. The patient was in atrial fibrillation with heart rates between 107-125 bpm during the exam. Left Ventricle: The left ventricle is normal in size and wall thickness. The estimated left ventricular end diastolic volume is 153 ml. Left ventricular ejection fraction is estimated to be 25 +/- 5%. Left ventricular function has significantly worsened compared to the previous exam. Atria: Right atrial size is normal. Mitral Valve: There is mild mitral regurgitation. Aortic Valve: The aortic valve is trileaflet. Tricuspid Valve: The right ventricular systolic pressure is estimated to be at least 29 mmHg based on an estimated right atrial pressure of 8 mm Hg. There is mild tricuspid regurgitation. Great Vessels: The IVC is dilated (diameter is greater than 2.1 cm) yet it collapses greater than 50% with a sniff. This suggests a right atrial pressure of 8 mm Hg. Pericardium/ Pleura There is no pericardial effusion. There is a moderately large left-sided pleural effusion. MMode/2D Measurements & Calculations LVIDd: 5.3 cm LA dimension: 4.3 cm LVIDs: 4.7 cm LA A4 area: 26.1 cm2 FS: 11.6 % LA length (vol): 7.1 cm EPSS: 1.5 cm IVSd: 0.86 cm LVPWd: 0.73 cm LV bosch. diameter/BSA (cm/m^2): 2.3 LV sys. diameter/BSA (cm/m^2): 2.1 RA long axis: 5.9 cm RA area: 21.9 cm2 RA vol: 69.5 ml RA : 30.3 ml/m2 IVC diam: 1.9 cm Doppler Measurements & Calculations TR max winston: 229.4 cm/sec TR max P.1 mmHg Reading Physician:04:49 PM
[2025-01-08] MEDS: dilTIAZem SR 60 MG PO (09:07)
[2025-01-08] MEDS: SODIUM CHLORIDE 0.9% FLUSH 10 ML IV ×2 (09:07→21:13)
[2025-01-08] MEDS: APIXABAN 5 MG TABLET PO ×2 (09:07→21:12)
[2025-01-08] MEDS: POTASSIUM CHLORIDE 20 MEQ TAB 40 MEQ PO (09:07)
--- NOTE | 2025-01-08 15:53 | CM.DANOTE ---
B DCP Assessment Note Pt is a 54yo M admitted with chest pain, afib with RVR. PCP Crystal CABRERA provider Payer Jacinta prime and self pay [employer] reviewed EMR. per chart/RN/provider, pt afib remains uncontrolled as of 1600. HR remains in the 120s-130s. ammio drip finishes tonight at midnight. if HR remains uncontrolled, potential transfer out for cardiology. pt SOB, on room air. Family in room at bedside throughout day. Per chart, pt lives in [place], active [facility]. indep at baseline. if pt remains here, no anticipated needs. P: transfer to higher level of care for cardiology vs dc home. CM team will continue to follow in case any DCP needs arise. TED Barajas Discharge Planning/Care Management CM Discharge Assessment Start: 01/08/25 15:52 Freq: Status: Active Protocol: Document 01/08/25 15:52 SL (Rec: 01/08/25 15:53 SL Desktop) Discharge Planning Assessment Assigned A And P Technician TED [place] DPOA/Assigned Designee Name Mariam, spouse Contact Information [phone] Advance Directives? No: Patient said his spouse would help make decisions if he can't. Advance Directives on File No History Provided By Patient,Medical Record Prior Living Arrangements Apartment/Condo Household Members spouse,children Type of transporation used prior to Drives own vehicle admit Independent with ADL's Yes Is patient alert and oriented? Yes Comment None. Discharge Plan Home Transportation Arrangement Patient will self transport or his spouse will transport. Referrals Initiated None needed,Medicaid Application Review Status In Process Please Provide Date Initial DC 01/08/25 Assessment Was Performed Next Review Type Continued Stay Review
--- NOTE | 2025-01-08 16:12 | P.HP_ITS ---
History of Present Illness History of Present Illness Date Patient Seen: 01/08/25 Time Patient Seen: 09:30 Chief complaint: SOB, poss fluid on lungs hx Afib swelling LE Narrative: Per overnight hospitalist: 54-year-old male with a history of hypertension, diagnosed with new onset atrial fibrillation in October 2024 and was briefly hospitalized at [place]. He was doing well initially, on Cardizem 180 mg daily and Eliquis 5 mg bid, w/o palpitations, chest pain, GI bleed. Then gradually he developed SOB and leg swelling. Presented to ED fluid overloaded, with rapid A-fib ~ 150. Failed Cardizem drip, multiple IV BB, 2 cardioversions, digoxin 0.5, started on Amiodarone drip and Placed in observation to ICU. Without evidence of ACS on admission. Interval history: HR [facility] Medical History HTN (hypertension) Social History household members: spouse and children Smoking Status: Never smoker Meds Home Medications and Allergies Home Medications Medication Instructions Recorded Confirmed Type omeprazole 20 mg capsule,delayed 20 mg PO DAILY 11/05/24 01/08/25 History release apixaban 5 mg tablet (Eliquis) 5 mg PO BID 90 days #180 tabs 11/06/24 01/08/25 Rx diltiazem HCl 180 mg 180 mg PO 0600 01/08/25 01/08/25 History capsule,extended release 24 hr (Cardizem CD) Allergies Allergy/AdvReac Type Severity Reaction Status Date / Time aspirin Allergy Severe Swelling Verified 11/05/24 17:23 of Lip/Tongue/Throat [place] And [employer]ivatives Allergy Intermediate ITCHING Verified 11/05/24 09:20 Review of Systems Review of Systems Narrative: All other systems reviewed with the patient and are negative unless otherwise stated. Exam Vital Signs (past 8 hours): - 01/08/25 09:00 01/08/25 09:00 01/08/25 10:00 Temperature Pulse Rate 135 H 122 H Respiratory Rate 22 24 Blood Pressure 132/86 142/92 H Pulse Oximetry 93 92 Oxygen Delivery Method Room Air CPAP Oxygen Flow Rate 0 0 01/08/25 11:00 01/08/25 12:00 01/08/25 13:00 Temperature 97.1 F L Pulse Rate 129 H 128 H Respiratory Rate 23 24 Blood Pressure 131/89 130/87 138/106 H Pulse Oximetry 94 92 Oxygen Delivery Method Oxygen Flow Rate 0 0 01/08/25 13:00 01/08/25 13:00 01/08/25 13:30 Temperature Pulse Rate 127 H 123 H Respiratory Rate 32 H 29 H Blood Pressure Pulse Oximetry 91 91 Oxygen Delivery Method Room Air Oxygen Flow Rate 01/08/25 14:00 01/08/25 14:00 01/08/25 14:30 Temperature Pulse Rate 127 H 114 H Respiratory Rate 28 H 24 Blood Pressure 145/109 H Pulse Oximetry 92 91 Oxygen Delivery Method Oxygen Flow Rate 0 0 01/08/25 15:00 01/08/25 15:00 Temperature Pulse Rate 111 H Respiratory Rate 31 H Blood Pressure 149/89 H Pulse Oximetry 93 Oxygen Delivery Method Oxygen Flow Rate Fraction of Inspired Oxygen 28 SaO2/FiO2 Ratio 328 Oxygen Delivery Method Room Air Oxygen Flow Rate 0 Narrative Exam Narrative: General:? Patient is well developed and well nourished, in no distress at this time. HEENT:? Normocephalic, atraumatic, extraocular muscles intact, oral pharynx is clear and mucous membranes are moist. Neck: supple and symmetric, trachea is midline, no cervical adenopathy. Negative for JVD Chest:? Normal AP diameter and contour without kyphoscoliosis, no tachypnea, equal chest rise bilaterally. Lungs:? CTA b/l no wheezing rhonchi or rales. Cardio:?tachycardic, irregularly irregular, no m/r/g Abdomen: S NT ND. Musculoskeletal:? Muscle strength and tone are equal within normal limits, no deformity. Extremities: No edema or joint effusions. No cyanosis or clubbing. Neuro:? Alert and orientated x3,? sensation to touch intact in all extremities, no gross deficits noted of cranial nerves. Psych:? Patient has a well-kept appearance, appropriate affect, mental status attitude thought context and judgment are appropriate for age. Objective ECG Impression: afib with RVR, no significant ST depressions or elevations. Labs 01/07/25 17:30 01/08/25 04:20 Labs: Laboratory Results - last 24 hr 01/07/25 01/07/25 01/08/25 17:30 17:30 00:04 WBC 8.5 RBC 4.81 Hgb 13.4 L Hct 40.9 L MCV 85.0 MCH 27.9 MCHC 32.8 RDW 13.3 Plt Count 376 Neut % (Auto) 66.1 Lymph % (Auto) 20.9 L [place] % (Auto) 10.0 Eos % (Auto) 1.9 L Baso % (Auto) 1.1 Neut # (Auto) 5600 Lymph # (Auto) 1800 [place] # (Auto) 800 Eos # (Auto) 200 Baso # (Auto) 100 PT 18.4 H INR 1.6 H APTT 42 H Sodium 144 Potassium 3.6 Chloride 108 H Carbon Dioxide 23 BUN 10 Creatinine 1.43 H Estimated GFR 59 L BUN/Creatinine Ratio 7.0 Glucose 102 H Lactate 1.5 Calcium 9.0 Magnesium 1.8 Total Bilirubin 1.2 AST 29 ALT 36 Alkaline Phosphatase 154 H Total Creatine Kinase 138 Troponin I Cancelled < 0.012 NT-Pro-B Natriuret Pep 2930 H Total Protein 7.5 Albumin 4.1 Globulin 3.4 Albumin/Globulin Ratio 1.2 Lipase 42 Urine Color Yellow Urine Appearance Clear Urine pH 5.5 Ur Specific [place] 1.015 Urine Protein Negative Urine Glucose (UA) Negative Urine Ketones 1+ H Urine Occult Blood Negative Urine Nitrate Negative Urine Bilirubin Negative Urine Urobilinogen 0.2 Ur Leukocyte Esterase Negative Urine RBC None seen Urine WBC None seen Ur Squamous Epith Cells None seen Urine Bacteria None seen Ur Culture Indicated? Cult not indicated Vol Urine Centrifuged 10ml (spun) Nasal Screen MRSA (PCR) Blood Type O Positive Antibody Screen Negative 01/08/25 01/08/25 01:15 04:20 WBC RBC Hgb Hct MCV MCH MCHC RDW Plt Count Neut % (Auto) Lymph % (Auto) [place] % (Auto) Eos % (Auto) Baso % (Auto) Neut # (Auto) Lymph # (Auto) [place] # (Auto) Eos # (Auto) Baso # (Auto) PT INR APTT Sodium 140 Potassium 3.5 Chloride 106 Carbon Dioxide 24 BUN 12 Creatinine 1.40 H Estimated GFR > 60 BUN/Creatinine Ratio 8.6 Glucose 155 H Lactate Calcium 8.7 Magnesium 1.8 Total Bilirubin AST ALT Alkaline Phosphatase Total Creatine Kinase Troponin I NT-Pro-B Natriuret Pep Total Protein Albumin Globulin Albumin/Globulin Ratio Lipase Urine Color Urine Appearance Urine pH Ur Specific [place] Urine Protein Urine Glucose (UA) Urine Ketones Urine Occult Blood Urine Nitrate Urine Bilirubin Urine Urobilinogen Ur Leukocyte Esterase Urine RBC Urine WBC Ur Squamous Epith Cells Urine Bacteria Ur Culture Indicated? Vol Urine Centrifuged Nasal Screen MRSA (PCR) Not detected Blood Type Antibody Screen Assessment & Plan Assessment & Plan narrative: Atrial fibrilation with rapid ventricular response, active, POA - amiodarone drip continuing today with only modest improvement in RVR still generally in the 120s. - added diltiazem 60 mg TID for now, may need to change depending on TTE - recheck EF with limited TTE today - consider cardiology consultation vs transfer depending on response to amiodarone, medications, and TTE findings. - K3.5 repleted with oral supplementation today. Mg 1.8. Acute CHF, presume diastolic based on prior TTE, POA - not hypoxic - follow up limited TTE - consider additional diuresis but want to prioritize rate control agents at this time. GERD -Continue home PPI Code: Full, surrogate is patient's spouse DVT: on apixaban I have utilized all available immediate resources to obtain, update, or review the patient's current medications. Dispo: patient admitted under inpatient status to the ICU given RVR. Likely discharge home once RVR improved. Additional history obtained via discussions with the overnight hospitalist provider, bedside RN, and classification case manager today. These discussions contributed to the creation of the above assessment and plan. I have reviewed patient's presenting documentation, labs, and imaging personally. I spent 35 minutes providing critical care management this patient. This excludes time spent in performing separately billed procedures. Time-Based Coding :: [TOTAL MINUTES] spent with patient and on the chart (including review of chart, obtaining history, exam, reviewing outside data, placing orders, documenting exam and treatment plan, and counseling patient) on [DATE]. Quality VTE Deep Vein Thrombosis/Pulmonary Embolism Present on Admission: No
--- NOTE | 2025-01-08 17:23 | PC.NURSE ---
Day Shift Note Patient is alert and oriented x4. SBA into bathroom due to lines only, steady on feet. Denies chest pain or pressure. Reports shortness of breath that comes and goes with and without exertion. SpO2 low 90s. Afib RVR in the 130s to 140s this morning, currently down to 110s at rest, 120s to 130s with activity. On amiodarone gtt per protocol. Echo completed at bedside. Call light within reach, using appropriately to make needs known.
[2025-01-08] MEDS: FUROSEMIDE 20 MG/2 ML VIAL IV (17:43)
[2025-01-08] MEDS: METOPROLOL ER 25 MG TABLET PO ×2 (17:43→21:12)
[2025-01-08] MEDS: AMIODARONE 360 MG/200 ML PIGGYBACK 16.667 MG IV (19:03)
--- NOTE | 2025-01-08 23:20 | P.CALLCOV_ITS ---
Call Coverage Note Note Date of Patient Contact: 01/08/25 Time of Patient Contact: 18:30 Narrative of Care Provided: TTE showed EF of approx 25%. Discussed with cardiology bath design sales consultant given newly reduced EF, likely due to his tachyarrythmia and ongoing RVR despite attempts with cardioversion x2 in the ER, amiodarone, digoxin, diltiazem, and metoprolol. Given hypertensive, okay to add diuresis for L pleural effusion and metoprolol given low EF and rate control. Continues on apixaban. Cardiology also recommended continued amiodarone overnight. If there is no improvement by tomorrow 01/09, re-discuss with cardiology bath design sales consultant for likely transfer to [facility] for inpatient cardiology consultation and additional management. Current medications for RVR include 1) Amiodarone infusion 2) Metoprolol succinate 25 mg BID 3) apixaban 5 mg BID Diltiazem gtt and oral was attempted previously, without much success in rate control, but also now stopped due to reduced EF.
[2025-01-09] VITALS (33 sets, daily range): BP systolic 127–155; BP diastolic 83–106; PULSE 128–146; RESP 17–38; TEMP 36.2–36.3; O2SAT 91–97
[2025-01-09 05:55] LABS: BUN Creatinine Ratio 9.5 (6-22); Blood Urea Nitrogen 14 mg/dL (9-20); Calcium 8.7 mg/dL (8.4-10.2); Carbon Dioxide 25 mmol/L (22-32); Chloride 106 mmol/L (98-107); Estimated Glomerular Filt Rate 57 mL/min (>60); Glucose 133 mg/dL (70-100); HEMOLYSIS < 15 (0-50); Potassium 3.9 mmol/L (3.4-5.1); Sodium 141 mmol/L (137-145)
[2025-01-09] MEDS: APIXABAN 5 MG TABLET PO (08:16)
[2025-01-09] MEDS: FUROSEMIDE 20 MG/2 ML VIAL IV (08:16)
[2025-01-09] MEDS: METOPROLOL ER 25 MG TABLET PO (08:16)
[2025-01-09] MEDS: AMIODARONE 200 MG TABLET 400 MG PO (10:26)
--- NOTE | 2025-01-09 11:27 | CM.DPNOTE ---
DCP note [employer] reviewed EMR per provider/nursing staff in morning rounds, HR remains uncontrolled. attempting transfer to either [facility] or another facility with cardiology INPT. [facility] pending bed availability no further CM needs at this time. will continue to follow as needed TED Barajas
[2025-01-09] MEDS: METOPROLOL IR 50 MG TABLET PO (12:08)
--- NOTE | 2025-01-09 13:09 | P.DS_ITS ---
History of Present Illness History of Present Illness Chief complaint: SOB, poss fluid on lungs hx Afib swelling LE Narrative: From H&P: Per overnight hospitalist: 54-year-old male with a history of hypertension, diagnosed with new onset atrial fibrillation in October 2024 and was briefly hospitalized at [place]. He was doing well initially, on Cardizem 180 mg daily and Eliquis 5 mg bid, w/o palpitations, chest pain, GI bleed. Then gradually he developed SOB and leg swelling. Presented to ED fluid overloaded, with rapid A-fib ~ 150. Failed Cardizem drip, multiple IV BB, 2 cardioversions, digoxin 0.5, started on Amiodarone drip and Placed in observation to ICU. Without evidence of ACS on admission. Interval history: HR Discharge Providers Provider Date of admission: 01/07/25 23:55 Discharge Date: 01/09/25 Primary care physician: Quita CABRERA Provider Consults: Phone support with [facility]. Discharge provider: Wesley Domínguez MD Summary Hospital Course Discharge Diagnosis: 1. Atrial fibrilation with rapid ventricular response, present on admission and active. 2. Acute systolic heart failure (tachycardia induced), present on admission and active. 3. Morbid obesity, present on admission and active. Hospital Course: The patient had atrial fibrillation with rapid response refractory to efforts to slow him down in the ED and 2 cardioversions were attempted without success. The patient was refractory to maximum dose diltiazem at 15 mg and oral metoprolol was started. An amiodarone load continue with the next 24 hours. The patient was converted to p.o. amiodarone 400 b.i.d. in the morning of the and his metoprolol was increased to 50 mg q.6 hours. The patient has been on apixaban since mid October has not missed any doses. The case was discussed with Cardiology with right recommendations to transfer for cardioversion and EPS consultation. Status at Discharge Cognitive/behavioral status at discharge: oriented Functional status at discharge: independent ambulation Overall status at discharge: patient is progressing back to baseline Time Spent with Patient Time spent: Greater than 30 minutes Exam Vital Signs (past 8 hours): - 01/09/25 05:32 01/09/25 06:00 01/09/25 06:01 Temperature Pulse Rate 141 H 131 H Respiratory Rate 28 H 18 Blood Pressure 139/92 H Pulse Oximetry 91 Oxygen Delivery Method 01/09/25 06:01 01/09/25 06:30 01/09/25 07:00 Temperature Pulse Rate 131 H 138 H Respiratory Rate 22 21 Blood Pressure 127/103 H Pulse Oximetry 92 92 Oxygen Delivery Method 01/09/25 07:00 01/09/25 07:30 01/09/25 08:00 Temperature Pulse Rate 130 H 135 H Respiratory Rate 23 26 H Blood Pressure 136/92 H Pulse Oximetry 94 94 Oxygen Delivery Method 01/09/25 08:00 01/09/25 08:16 01/09/25 08:46 Temperature Pulse Rate 133 H 138 H 140 H Respiratory Rate 27 H Blood Pressure 136/92 H 141/95 H Pulse Oximetry 93 Oxygen Delivery Method 01/09/25 09:00 01/09/25 09:00 01/09/25 09:02 Temperature 97.3 F L Pulse Rate 145 H Respiratory Rate 35 H Blood Pressure Pulse Oximetry 91 Oxygen Delivery Method Room Air 01/09/25 09:15 01/09/25 09:15 01/09/25 09:30 Temperature Pulse Rate 143 H 142 H Respiratory Rate 29 H 32 H Blood Pressure 155/106 H Pulse Oximetry 95 93 Oxygen Delivery Method 01/09/25 10:00 01/09/25 10:00 01/09/25 10:30 Temperature Pulse Rate 146 H 140 H Respiratory Rate 25 H 28 H Blood Pressure 141/95 H Pulse Oximetry 93 93 Oxygen Delivery Method 01/09/25 11:00 01/09/25 11:00 01/09/25 11:30 Temperature Pulse Rate 136 H 139 H Respiratory Rate 26 H 20 Blood Pressure 129/96 H Pulse Oximetry 94 92 Oxygen Delivery Method 01/09/25 12:00 01/09/25 12:00 01/09/25 12:30 Temperature Pulse Rate 136 H 144 H Respiratory Rate 25 H 30 H Blood Pressure 128/91 H Pulse Oximetry 94 94 Oxygen Delivery Method 01/09/25 13:00 01/09/25 13:00 01/09/25 13:00 Temperature Pulse Rate 135 H Respiratory Rate 26 H Blood Pressure 135/93 H Pulse Oximetry 93 Oxygen Delivery Method Room Air Fraction of Inspired Oxygen 28 SaO2/FiO2 Ratio 328 Oxygen Delivery Method Room Air Oxygen Flow Rate 0 Narrative Exam Narrative: NAD, alert and oriented. Fluent speech. Lungs are clear, normal rate and effort. Heart is irregular, no murmur gallop or rub. Abdomen is soft, non distended. Extremities are free of edema. Objective ECG Impression: AF + RVR. Imaging CT scan - chest: Radiologist's impression: Cardiomegaly with small effusions and prominent interstitial markings concerning for pulmonary edema/congestive heart failure. Recommend clinical correlation. Labs 01/07/25 17:30 01/09/25 04:40 Labs: Laboratory Results - last 24 hr 01/09/25 04:40 Sodium 141 Potassium 3.9 Chloride 106 Carbon Dioxide 25 BUN 14 Creatinine 1.47 H Estimated GFR 57 L BUN/Creatinine Ratio 9.5 Glucose 133 H Calcium 8.7 PFSH Medical History HTN (hypertension) Social History household members: spouse and children Smoking Status: Never smoker Discharge Assessment & Plan Assessment and Plan Assessment: 1. Atrial fibrilation with rapid ventricular response, present on admission and active. 2. Acute systolic heart failure (tachycardia induced), present on admission and active. 3. Morbid obesity, present on admission and active. Plan of Treatment: Transfer to [facility] for powder room attendant consult, cardioversion. Discharge Plan Discharge Plan Patient Disposition: [facility] Other facility: [facility] Under care of provider: Dr Jordan Discharge orders & Medications Prescriptions: No Action omeprazole 20 mg capsule,delayed release(DR/EC) 20 mg PO DAILY Eliquis 5 mg Tablet 5 mg PO BID 90 Days Qty: 180 0RF diltiazem HCl [Cardizem CD] 180 mg capsule,extended release 24hr 180 mg PO 0600 Follow up/Referrals: Quita Summers [Primary Care Provider] - Discharge Data Primary Care Provider: Quita Summers Quality VTE Deep Vein Thrombosis/Pulmonary Embolism Present on Admission: No MIPS - DC The patient has a history of heart transplant or Left Ventricular Assist Device (LVAD). If yes, STOP here.: No The patient has current or prior documentation of left ventricular ejection fraction (LVEF) less than or equal to 40%, or moderate or severely depressed left ventricular systolic function.: Yes A. The patient was prescribed or already taking an Angiotensin-Converting Enzyme (MARTINA) Inhibitor, or Angiotensin Receptor Amalia (ARB).: No B. The patient was prescribed or already taking a beta-amalia. [If Yes to Both A & B, STOP here]: Yes Patient not prescribed/taking MARTINA or ARB for medical/patient reason(s) including (ex: allergy, intolerance, contraindication).: elevated creatinine.
--- NOTE | 2025-01-09 13:50 | PC.NURSE ---
Day shift note: A/Ox4, uses call light appropriately to go to bathroom, steady on feet, able to ambulate to bathroom with no difficulty. SOB with exertion, that is intermittent, SpO2 93-95% on RA. Pt remains in AFib RVR 130-160's at rest, Amiodarone gtt finished at 0700, 400mg PO Amiodarone and 75mg total of Metoprolol given with little to no affect. Transfer initiated to [facility], with transport house cleaner supervisor at 1355. Report called to Claudine at [facility], no further needs at this time. Care ongoing pending transport.
== END 2025-01-09 14:10 | disposition short-term general hospital (02) | DRG 308 ==
LOC: ED 23:18 → AC 23:56 → ICU 01-08 00:44
PROVIDERS: Emergency Medicine; Admitting Provider Internal Medicine; Emergency Provider Emergency Medicine; Referring Provider Emergency Medicine; Visit Provider Internal Medicine
DX: I48.91 Unspecified atrial fibrillation (principal); I50.21 Acute systolic (congestive) heart failure; Z68.41 Body mass index [BMI] 40.0-44.9, adult; I11.0 Hypertensive heart disease with heart failure; K21.9 Gastro-esophageal reflux disease without esophagitis; R00.0 Tachycardia, unspecified; E66.01 Morbid (severe) obesity due to excess calories; Z79.01 Long term (current) use of anticoagulants
CPT/HCPCS: 36415; 71045; 80048; 80053; 81001; 81003; 82550; 83605; 83690; 83735; 83880; 84484; 85025; 85610; 85730; 86850; 86900; 86901; 87797; 92960; 93005; 93010; 93307; 96365; 96366; 96375; 96376; 99152; 99285; 99291; J0282; J1160; J1938; J2470; J2704; Q9957

== ENCOUNTER → 2025-08-27 14:58 | Outpatient (CLI) | payer OTHER, SELFPAY ==
[2025-01-08 02:16] VITALS: BMI 42.1
--- NOTE | 2025-08-27 14:59 | DI.NM.S_ITS ---
PROCEDURE: NM NORMA PERF SPECT SINGLE STUDY Resting myocardial perfusion SPECT, with gated imaging and ejection fraction RADIOPHARMACEUTICAL: 25.6 mCi 99m-Tc sestamibi intravenously. INDICATIONS: PAF TECHNIQUE: Radiopharmaceutical was injected at rest. SPECT images were obtained. SPECT myocardial perfusion images were displayed in short axis, horizontal long axis, and vertical long axis views. Gated images were reviewed using [employer] software. COMPARISON: None. FINDINGS: Raw data: There is good tracer uptake by the myocardium. No significant motion artifacts. Left ventricle function: Gated images demonstrate left ventricle wall thickening. No segmental wall motion abnormalities. No transient ischemic dilation. Left ventricle resting end-diastolic volume is 76 mL. Left ventricle resting ejection fraction is 72%; normal values are above 45%. Myocardial perfusion: There is normal distribution of activity in the left and right ventricular myocardium. No perfusion defects. IMPRESSION: Normal resting perfusion of the myocardium. Normal wall motion and systolic function. Stress perfusion not done due to difficulties with IV access on 2nd day. Dictated by: Antonio Bertrand MD on 09/13/2025 at 12:46 Approved by: Antonio Bertrand MD on 09/13/2025 at 12:48
== END ==
LOC: NUCM 14:59
PROVIDERS: Referring Provider Nurse Practitioner Family; Visit Provider Nurse Practitioner Family
DX: I48.0 Paroxysmal atrial fibrillation (principal)
CPT/HCPCS: 78451; A9502

== ENCOUNTER → 2025-09-07 11:05 | Outpatient (CLI) | payer OTHER, SELFPAY ==
[2025-01-08 02:16] VITALS: BMI 42.1
--- NOTE | 2025-09-07 11:06 | DI.MRI.S_ITS ---
PROCEDURE: MR HEAD/BRAIN WO CON INDICATIONS: MEMORY CONCERNS TECHNIQUE: Noncontrast axial T1 spin echo, axial T2 fast spin echo, sagittal and axial FLAIR, coronal T2 fast spin echo, axial gradient echo, axial diffusion and ADC through the brain. COMPARISON: None. FINDINGS: Image quality: Excellent. CSF Spaces: Basal cisterns are patent. No extra-axial fluid collections. Ventricles are normal in size and shape. Brain: Scattered punctate foci of T2/FLAIR hyperintense signal within the supratentorial white matter. No intracranial masses or hemorrhage. [place]as/white matter interface is normal. Brainstem appears normal. Diffusion-weighted images demonstrate no acute infarct. No chronic ischemic insults. Normal intravascular flow voids are present. Skull and face: Calvarium has normal marrow signal. Orbits appear normal. Sinuses: Sinuses and mastoids are clear. IMPRESSION: Scattered punctate foci of T2/FLAIR hyperintense signal within the supratentorial white matter are nonspecific and may represent early chronic microvascular ischemic change. Otherwise, no acute intracranial abnormalities. Dictated by: Mt Rosario M.D. on 09/09/2025 at 9:35 Approved by: Mt Rosario M.D. on 09/09/2025 at 9:39
== END ==
PROVIDERS: Referring Provider Family Medicine; Visit Provider Family Medicine
DX: R41.3 Other amnesia (principal)
CPT/HCPCS: 70551